=== PATIENT | male | born 1945 | race Caucasian/White ===

== ENCOUNTER → 2023-09-10 15:44 | Outpatient (REF) | payer MEDICARE, SELFPAY | LOC: RAD 15:44 | PROVIDERS: ATTENDING PHYSICIAN Physician Assistant; FAMILY PHYSICIAN Family Medicine | DX: M79.661 Pain in right lower leg (principal) | CPT/HCPCS: 93971 ==

== ENCOUNTER → 2023-10-22 10:18 | Outpatient (REF) | payer MEDICARE, SELFPAY | LOC: HWRAD 10:18 | PROVIDERS: ATTENDING PHYSICIAN Radiology Diagnostic Radiology; FAMILY PHYSICIAN Family Medicine | DX: T85.192D Other mechanical complication of implanted electronic neurostimulator of spinal cord electrode (lead), subsequent encounter (principal) | CPT/HCPCS: 71046; 72070; 72100 ==

== ENCOUNTER → 2024-01-02 10:58 | Outpatient (REF) | payer MEDICARE, SELFPAY | LOC: HWRAD 10:58 | PROVIDERS: ATTENDING PHYSICIAN Family Medicine | DX: Z86.79 Personal history of other diseases of the circulatory system (principal); I89.0 Lymphedema, not elsewhere classified; I83.893 Varicose veins of bilateral lower extremities with other complications | CPT/HCPCS: 93970 ==

== ENCOUNTER → 2024-01-08 13:40 | Outpatient (REF) | payer MEDICARE, SELFPAY | LOC: HWRCS 13:40 | PROVIDERS: ATTENDING PHYSICIAN Family Medicine; OTHER PHYSICIAN Internal Medicine Cardiovascular Disease | DX: I51.7 Cardiomegaly (principal) | CPT/HCPCS: 93306 ==

== ENCOUNTER → 2024-01-14 09:09 | Outpatient (REF) | payer MEDICARE, SELFPAY ==
[2024-01-14 12:32] LABS: Blood Urea Nitrogen 27 mg/dl (9-20); Calcium 9.6 mg/dl (8.4-10.2); Carbon Dioxide 27 mmol/L (22-30); Chloride 104 mmol/L (98-107); Glucose 100 mg/dl (70-99); HDL Cholesterol 45 mg/dl; LDL Cholesterol, Calculated 126 mg/dl; Potassium 3.9 mmol/L (3.5-5.1); Sodium 141 mmol/L (135-145); Total Cholesterol 189 mg/dl (50-199); Triglyceride 90 mg/dl (10-149); Very Low Density Lipoprotein 18 mg/dl (0-30); eGFR > 60.00
[2024-01-14 12:56] LABS: TSH 3.23 uIU/ml (0.47-4.68)
[2024-01-14 14:25] LABS: Glycohemoglobin (HgbA1c) 5.6 % (4.0-5.6)
== END ==
LOC: HWLAB 09:09
PROVIDERS: ATTENDING PHYSICIAN Radiology Diagnostic Radiology; FAMILY PHYSICIAN Family Medicine
DX: R60.0 Localized edema (principal); S81.801D Unspecified open wound, right lower leg, subsequent encounter; I51.7 Cardiomegaly; E78.2 Mixed hyperlipidemia; R73.01 Impaired fasting glucose; T85.192D Other mechanical complication of implanted electronic neurostimulator of spinal cord electrode (lead), subsequent encounter
CPT/HCPCS: 36415; 72070; 72100; 80048; 80061; 83036; 84443

== ENCOUNTER → 2024-01-15 10:38 | Outpatient (REF) | payer MEDICARE, SELFPAY | LOC: PAVMRI 10:38 | PROVIDERS: ATTENDING PHYSICIAN Physical Medicine & Rehabilitation; FAMILY PHYSICIAN Family Medicine | DX: M54.12 Radiculopathy, cervical region (principal) | CPT/HCPCS: 72141 ==

== ENCOUNTER → 2024-02-22 10:38 | Outpatient (REF) | payer MEDICARE, SELFPAY | LOC: HWRAD 10:38 | PROVIDERS: ATTENDING PHYSICIAN Physician Assistant Medical; FAMILY PHYSICIAN Family Medicine | DX: M54.2 Cervicalgia (principal) | CPT/HCPCS: 72050 ==

== ENCOUNTER 2024-07-08 10:38 | Emergency (ER) | payer MEDICARE, SELFPAY ==
[2024-07-08 10:44] VITALS: BP 150/104
[2024-07-08 11:12] LABS: % Basophils 0.8 % (0-2); % Eosinophils 1.1 % (0-6); % Immature Granulocytes 0.5 % (0-0.5); % Lymphocytes 15.4 % (20.5-51.1); % Monocytes 7.2 % (1.7-9.3); Absolute Basophils 0.1 10^3/uL (0-0.2); Absolute Eosinophils 0.1 10^3/uL (0-0.7); Absolute Lymphocytes 0.9 10^3/uL (1.2-3.4); Absolute Monocytes 0.4 10^3/uL (0.1-0.6); Absolute Neutrophils 4.6 10^3/uL (1.4-6.5); Hematocrit 44.9 % (39.0-52.0); Hemoglobin 15.8 g/dL (13.0-18.0); Mean Corp Hgb Conc. 35.2 g/dL (33.0-37.0); Mean Corpuscular Hgb 32.6 pg (27.0-31.0); Mean Corpuscular Volume 92.8 fL (80.0-94.0); Mean Platelet Volume 10.1 fL (7.4-10.4); Nucleated Red Blood Cells % 0 % (-); Platelet Count 225 10^3/uL (130-400); Red Blood Cell Count 4.84 10^6/uL (4.70-6.10); Red Cell Dist. Width 12.5 % (11.5-14.5); White Blood Cell Count 6.1 10^3/uL (4.8-10.8)
[2024-07-08 11:29] LABS: ALT (SGPT) 36 U/L (0-50); AST (SGOT) 41 U/L (17-59); Albumin 4.4 g/dl (3.5-5.0); Alkaline Phosphatase 69 U/L (38-126); Blood Urea Nitrogen 16 mg/dl (9-20); Calcium 9.7 mg/dl (8.4-10.2); Carbon Dioxide 28 mmol/L (22-30); Chloride 102 mmol/L (98-107); Glucose 106 mg/dl (70-99); Potassium 3.9 mmol/L (3.5-5.1); Sodium 138 mmol/L (135-145); Total Bilirubin 0.6 mg/dl (0.2-1.3); Total Protein 6.6 g/dl (6.3-8.2); eGFR > 60.00
[2024-07-08 11:40] LABS: Troponin I 0.013 ng/ml
--- NOTE | 2024-07-08 12:48 | EDRN ---
THis RN assumed care of this pt at this time. Pt moved from to room #25.
[2024-07-08 12:55] VITALS: BP 123/77
[2024-07-08 12:58] VITALS: BMI 29.9
[2024-07-08 13:00] VITALS: BP 122/69
--- NOTE | 2024-07-08 13:17 | ED.GENMED ---
History of Present Illness
General
Chief Complaint: Chest Pain
Source: patient, records and spouse
Exam Limitations: none
Time Seen by Provider: 07/08/24 12:18
Nursing documentation reviewed up to this point in time: agreed with
History of Present Illness
History of Present Illness:
78-year-old male status post ablation followed by Dr. Ruiz, hypertension chronic back pain presents with chest pain with exertion mild shortness of breath with exertion for some time worsened over the past few weeks he has follow-up set up
Joseph in a few weeks, no chest pain at rest only with exertion no fevers or chills did feel nauseous recently after walking, has had stress test and echocardiograms previously never had a cardiac cath no known CAD
Past History
Past History
ED Past Medical History: Arrthythmia and Other (Kidney stone)
ED Past Surgical History: Cardiac
Social History
Tobacco: Non-smoker
Alcohol: Occasional
Drug: None
Personal:
Living: with family
Employment: Employed
Family History
Family History: Hypertension
Review of Systems
Review of Systems
All Other Systems: Not applicable
Constitutional: Denies fever or fatigue
EENT: Reports no symptoms
Respiratory: Reports trouble breathing
Cardiac: Reports chest pain; Denies diaphoresis, palpitations or syncope
ABD/GI: Reports nausea
: Reports no symptoms
Musculoskeletal: Reports no symptoms
Skin: Reports no symptoms
Neurological: Reports dizzy
Endocrine: Reports no symptoms
Phy Exam
Physical Exam
Physical Exam:
Physical Exam
General: no apparent distress, not acutely ill
Neck: No jaundice
Heart: s1/s2 regular rate and rhythm, no murmur. equal radial pulses.
Lungs: no acute respiratory distress. clear bilaterally
Abdomen: Nontender
Neuro: alert and oriented. no focal neurological deficits
Skin: no rash
Psychiatric: well kept. interactive and cooperative
Extremities: no edema. no calf tenderness.
Scores
Heart Score for Chest Pain Patients
STEMI patient?: No
History: Slightly or Non-Suspicious
ECG: Normal
Age: >/= 65 years
Risk Factors: 1 or 2 Risk Factors
Troponin: </= Normal Limit
Heart Score for Chest Pain Patients: 3
Heart Score Risk: 2.5% MACE over next 6 weeks
Course
Orders/Labs/Results
Orders:
Orders
07/08/24 10:39
Electrocardiogram (*1) Urgent
Reason for Study: Chest Pain
EKG- Treatment ONCE
07/08/24 10:53
Complete Blood Count/With Diff Urgent
Comprehensive Metabolic Panel Urgent
Troponin I Urgent
07/08/24 13:21
CR Chest - 2 Views Urgent
Comment:
Reason For Exam: cp
07/08/24 14:48
Echo Follow-up Study Urgent
Reason for Study: chest pain, SOB
07/08/24 15:00
Troponin I Urgent
Abnormal Lab Results
07/08/24
10:53
MCH 32.6 H pg
(27.0-31.0)
Absolute Lymphs (auto) 0.9 L 10^3/uL
(1.2-3.4)
Lymphocytes % 15.4 L %
(20.5-51.1)
Glucose 106 H mg/dl
(70-99)
07/08/24 10:53
07/08/24 10:53
Vital Signs
Initial and Last Documented VS:
Initial Vital Signs
Temp Pulse Resp BP Pulse Ox
97.8 F 95 16 150/104 99
07/08/24 10:44 07/08/24 10:44 07/08/24 10:44 07/08/24 10:44 07/08/24 10:44
Last Documented Vital Signs
Temp Pulse Resp BP Pulse Ox
97.8 F 74 14 130/77 98
07/08/24 10:44 07/08/24 14:45 07/08/24 14:45 07/08/24 14:34 07/08/24 14:45
MDM/Problems Addressed
Differential Diagnosis Includes:
Angina, electrolyte abnormality, anemia, valvular disease deconditioning doubt PE or unstable angina
MDM/Problems Addressed:
Chest pain with exertion
Chronic conditions affecting care: Arrhythmia
Acute Exacerbation and/or Progression of Chronic Illness: Arrhythmia
*Radiology
Radiology exam reviewed: preliminary read by ED provider
*Pulse Oximetry
Patient hypoxic: no
*EKG
Interpreted by ED Provider?: Yes
Interpretation: normal
Comparison EKG: no comparison EKG present
Heart Rate: 70
Rate: normal
Rhythm: sinus
Ischemia: no ischemia
*Bleach Supervisor Interpretation
Rate: normal
Interpretation: normal
Heart Rate: 70
*Critical Care Note
Total Time (30-74mins, 75-104mins- exclusive of procedures): Not Applicable
Update Note
Update Note:
4 PM, update patient was seen by cardiology echocardiogram completed results reviewed troponin repeated results reviewed meds adjusted by cardiology outpatient as cath scheduled for
ED Attending Note
-
Portions of this chart may have been created with voice recognition software.� Occasional wrong word or��sound alike� substitutions may have occurred due to the inherent limitations of voice recognition software.
Discharge Plan
Departure
Patient Disposition: Home (Routine Discharge)
Date of Disposition: 07/08/24
Time of Disposition: 16:10
Patient with high blood pressure during this ER visit?: No
Discharge Problem:
Chest pain
Instructions: Chest Pain DCA Follow Up
Prescriptions:
No Action
tamsulosin 0.4 MG capsule
0.4 mg PO DAILY Qty: 7 0RF
diltiazem HCl 120 MG capsule,extended release 24hr
240 mg PO DAILY
Epidiolex 1 UNIT solution
1 unit PO TIDPRN PRN (Reason: anxiety)
Cbd Oil
1 drp sublingual BIDPRN PRN (Reason: Anxiety/pain)
ublcuolraru-cwujlacak-dgb C-Mn 1 TAB tablet
1 tab PO DAILY
Rx Instructions:
1500 [id number]
coenzyme Q10 [CoQ-10] 100 mg Capsule
100 mg PO DAILY
cholecalciferol (vitamin D3) [Vitamin D3] 125 mcg (5,000 unit) Tablet
250 mcg PO DAILY
Probiotic 1 EACH capsule
1 ea PO DAILY
[place] Orotate 5 MG tablet
5 mg PO DAILY PRN (Reason: add)
Plant Based Protien Powder
15 ml PO DAILY
Rhodiola Rosea Extract
700 mg PO DAILY
Vitamin K
200 mg PO DAILY
Zinc
30 mg PO DAILY
collagen
15 ml PO DAILY
vitamin E
400 units PO DAILY
[place] 3 Fish Oil 1,000 MG capsule
4,000 mg PO DAILY
alpha lipoic acid 500 MG capsule
500 mg PO DAILY
Black Curcumin Seed
1 tsp PO DAILY
Acetyl L-Carnitine
200 mg PO DAILY
tyrosine 500 mg Tablet
500 mg PO DAILY
Kyzatrex 100 mg Capsule
200 mg PO QAM AND QPM
ubiquinol-pyrroloquin quinone 100-10 mg Capsule
1 cap PO DAILY
ascorbic acid (vitamin C) [Vitamin C] 1,000 mg Tablet
1,000 mg PO DAILY
green tea leaf extract Capsule
1 cap PO DAILY
Lion's Jatin
1 tab PO DAILY
Pregnenolone
50 mg PO DAILY
mupirocin 2 % ointment
1 applic intranasal BID Qty: 1 0RF
Patient Comments:
started Sat pm 07/29/23
Silvermed Gel,Extended Release
1 applic TOPICAL DAILY
Patient Comments:
did not start this med yet
Rx Instructions:
Left second toe
aspirin 325 mg Tablet
325 mg PO DAILY Qty: 30 0RF
Rx Instructions:
Take daily x4 weeks for blood clot prevention; then resume Aspirin 81 mg daily.
hydromorphone 2 mg Tablet
2 mg PO Q4H PRN (Reason: moderate-severe pain) Qty: 30 0RF
Rx Instructions:
1 tab for moderate pain, 2 if severe.
Dx total joint.
docusate sodium 100 mg Capsule
100 mg PO BID Qty: 30 0RF
pantoprazole 40 mg Tablet,Delayed Release (Dr/Ec)
40 mg PO DAILY Qty: 30 0RF
Rx Instructions:
Take nightly while on post-op pain meds to reduce GI upset.
sennosides [Senna Lax] 8.6 mg Tablet
17.2 mg PO BID Qty: 30 0RF
ondansetron HCl 4 mg tablet
4 mg PO Q6H PRN (Reason: nausea and vomiting) Qty: 30 0RF
acetaminophen [Tylenol Extra Strength] 500 mg tablet
1,000 mg PO Q6H Qty: 60 0RF
Rx Instructions:
DO NOT exceed >4000 mg daily.
prednisone 10 mg tablet
40 mg PO TAPER Qty: 20 0RF
Rx Instructions:
4 TABS X 2 DAYS, 3 TABS X 2 DAYS, 2 TABS X 2 DAYS, 1 TAB X 2 DAYS, THEN STOP
losartan 50 MG tablet
50 mg PO DAILY Qty: 0 0RF
Rx Instructions:
HOLD IF systolic blood pressure <130 while on Dilaudid.
Referrals:
Acquaviva,Ro, DO [Family Provider] - Next open appointment
Activity Restrictions/Additional Instructions:
Adjust your medications as instructed by cardiology
Follow-up for further testing this week
Interventions
Interventions:
*Risk Screen - Suicide Last Done: 07/08/24 13:02
*General Assessment Last Done: 07/08/24 12:59
*Neglect/Abuse Screening Last Done: 07/08/24 13:03
ED- Fall Risk Assessment Last Done: 07/08/24 13:02
*ED COVID-19 Vaccine History Last Done: 07/08/24 12:59
ED- Cardiac Assessment Last Done: 07/08/24 13:07
Discharge Date and Time
Print Language: SWISS
--- NOTE | 2024-07-08 14:00 | CON.CAR ---
Addendum entered and electronically signed by Freddie Mclean DO 07/08/24 16:41:
I saw and examined the patient.
The Delivery Agent's note was reviewed and I agree with the note.
Comment:
Plan:
PCP: Dr. Knox
Primary garment sewing machine operator: Dr. Ruiz
Impression:
Exertional chest pressure
Dyspnea on exertion
Hypertension
Paroxysmal A-fib status post ablation
Hyperlipidemia
GERD
Previous cardiovascular testing:
-Lexiscan nuclear stress test 07/28/2020: Fixed defect in mid inferior lateral and apical lateral segments consistent with infarction with residual ischemia versus soft tissue attenuation, improved with prone imaging making attenuation more likely.
EF 56%
-Echo 01/08/2024: Small LV, mild LVH, EF 60 to 65%, mild aortic sclerosis without stenosis or regurgitation, normal right heart with PASP 25 to 30 mmHg
-FLP 01/14/2024: LDL 126, HDL 45, TG 90, tchol 189
Plan:
-78-year-old male with PMH atrial fibrillation s/p PVI ablation 08/16/2020, HTN, hyperlipidemia, GERD, chronic lower extremity edema, chronic back pain, [facility] with worsening chest pressure/squeezing and dyspnea on exertion over the
past month, and worse today when walking. He has no rest discomfort and can ride exercise bike without discomfort. Troponin negative x 1. EKG without ischemic EKG changes.
-Exertional nature of symptoms concerning for coronary artery disease. Pt has risk factors including hypertension, hyperlipidemia, borderline elevated glucose, family history of CAD.
We discussed options including admission vs outpt ischemic eval and eval of coronary anatomy. Check second troponin and it was negative.
Bedside urgent echo showed normal function with no wall motion changes.
Cannot walk on treadmill due to chronic back pain
Discussed checking a left heart cath this week to eval coronary anatomy.
If he has recurrent cp, he will come back to ER.
Started ASA 81 mg daily
Start Toprol XL 25 mg dailly. Reduce Cardizem CD to 120 mg daily to allow more room for blood pressure in the setting of Toprol.
-Restart losartan 50 mg daily (has been off for past week, overdue for refill)
Discuss initiation of statin pending cath findings. Patient has declined statin in past.
Discussed with patient's at bedside and emergency room.
Original Note:
Consultation
Consultation Request
Date/Time Consultation Requested: 07/08/2024, 1345
Date/Time Consultation Performed: 12/07/2023, 1400
Requesting Provider: Dr. Gunderson
Performing Provider: LENO Meza for Dr. Mclean
Reason for Consultation: Chest pain
Medical History
-
Chief Complaint: Chest pain
History of Present Illness:
78-year-old male with past medical history atrial fibrillation status post PVI ablation 08/16/2020, hypertension, hyperlipidemia, GERD, chronic lower extremity edema, chronic back pain, presented to ED today with worsening chest pain and dyspnea on
exertion over the past month. He reports developing a squeezing/pressure-like sensation in the center of his chest when he walks about 30 yards, associated with shortness of breath. Pressure can radiate up to his neck. No associated diaphoresis
or nausea. He has to stop walking due to the discomfort. He reports that he can ride an exercise bike without developing the chest discomfort. He has no rest discomfort. He was walking into the pharmacy to get his COVID and flu vaccines today
and felt more short of breath with exertion at a shorter distance so decided to present to the ED for evaluation.
He's had no known recurrent atrial fibrillation since his ablation in 2020. He wears an Apple Watch and has had no notifications for A-fib.
In review of his medications, he is currently taking Cardizem 240 mg daily. He has been off losartan for the past week and is overdue for refill. He was previously on aspirin but is no longer taking it. He takes 2 ibuprofen every night for back
pain relief.
Patient known to Dr. Ruiz and last seen in March 2023 with follow-up scheduled for a few weeks from now.
Had ECHO 01/08/2024: Small ventricle with mild LVH, EF 60 to 65%, mild aortic sclerosis with no stenosis or regurgitation, normal right heart with PASP 25 to 30 mmHg
Lexiscan nuclear stress test 07/28/2020: Fixed defect in mid inferior lateral and apical lateral segments consistent with infarction with residual ischemia versus soft tissue attenuation, improved with prone imaging making attenuation more likely.
EF 56%
ED evaluation:
EKG normal sinus rhythm, no ST abnormality.
Troponin 0.013, second troponin pending
CBC, CMP no significant abnormalities.
Past medical history:
Atrial fibrillation status post PVI 08/2020
Hyperlipidemia
Hypertension
GERD
ADHD
Pulmonary nodule
diaphragmatic hernia
Cataracts
chronic back pain
Past Medical History
Past Medical History: Other
Past Surgical History: Orthopedic (Bilateral knee meniscus repairs, laminectomy and spinal fusion 10/2017, 05/2018, inguinal hernia repair 07/2021, recurrent right inguinal hernia status postrepair 03/2022)
Social History
Tobacco: Former Smoker
Alcohol: Occasional (Rare)
Personal:
Living: With Family
Family History
Family History: Other (Sister with CABG age 60s, cousin with CABG)
Allergies / Home Medications
Allergy/AdvReac Type Severity Reaction Status Date / Time
clams Allergy Syncopy Verified 07/08/24 10:47
oxycodone Allergy 'LOOPY' Verified 07/08/24 10:47
WAS OK
WITH
DILAUDID
PREVIOUSLY
sulfamethoxazole Allergy Rash, Fever Verified 07/08/24 10:47
trimethoprim Allergy Rash, Fever Verified 07/08/24 10:47
�Medication �Instructions �Recorded �Confirmed �Type
tamsulosin 0.4 mg capsule 0.4 mg PO DAILY #7 caps 06/19/17 07/30/23 Rx
diltiazem HCl 120 mg 240 mg PO DAILY Arrhythmia 08/16/20 07/30/23 History
capsule,extended release 24 hr
Cbd Oil 1 drp sublingual BIDPRN PRN 07/18/21 07/30/23 History
Anxiety/pain
Lactobacillus acidophilus 10 1 ea PO DAILY Gastrointestinal 07/18/21 07/30/23 History
billion cell capsule (Probiotic) Issue
[place] Orotate 5 mg PO DAILY PRN add 07/18/21 07/30/23 History
Plant Based Protien Powder 15 ml PO DAILY Supplement 07/18/21 07/30/23 History
Rhodiola Rosea Extract 700 mg PO DAILY Supplement 07/18/21 07/30/23 History
Vitamin K 200 mg PO DAILY Supplement 07/18/21 07/30/23 History
Zinc 30 mg PO DAILY Supplement 07/18/21 07/30/23 History
cannabidiol 100 mg/mL oral 1 unit PO TIDPRN PRN anxiety 07/18/21 07/30/23 History
solution (Epidiolex)
cholecalciferol (vitamin D3) 125 250 mcg PO DAILY Supplement 07/18/21 07/30/23 History
mcg (5,000 unit) tablet (Vitamin
D3)
coenzyme Q10 100 mg capsule 100 mg PO DAILY Supplement 07/18/21 07/30/23 History
(CoQ-10)
collagen 15 ml PO DAILY Supplement 07/18/21 07/30/23 History
uiwnoukuxrb-jdnmiueqh-xoj C-Mn 750 1 tab PO DAILY Supplement 07/18/21 07/30/23 History
mg-600 mg-55 mg-5 mg tablet
vitamin E 400 units PO DAILY Supplement 07/18/21 07/30/23 History
Black Curcumin Seed 1 tsp PO DAILY Supplement 03/17/22 07/30/23 History
[place] 3 Fish Oil 4,000 mg PO DAILY High Cholesterol 03/17/22 07/30/23 History
alpha lipoic acid 500 mg PO DAILY Supplement 03/17/22 07/30/23 History
Acetyl L-Carnitine 200 mg PO DAILY Supplement 06/29/23 07/30/23 History
Lion's Jatin 1 tab PO DAILY Supplement 06/29/23 07/30/23 History
Pregnenolone 50 mg PO DAILY Hormonal Agent 06/29/23 07/30/23 History
ascorbic acid (vitamin C) 1,000 mg 1,000 mg PO DAILY Supplement 06/29/23 07/30/23 History
tablet (Vitamin C)
green tea leaf extract 1 cap PO DAILY Supplement 06/29/23 07/30/23 History
testosterone undecanoate 100 mg 200 mg PO QAM AND QPM Hormonal 06/29/23 07/30/23 History
capsule (Kyzatrex) Agent
tyrosine 500 mg tablet 500 mg PO DAILY Supplement 06/29/23 07/30/23 History
ubiquinol 100 mg-pyrroloquinoline 1 cap PO DAILY Supplement 06/29/23 07/30/23 History
quinone (coenzyme PQQ) 10 mg
capsule
mupirocin 2 % topical ointment 1 applic intranasal BID #1 tube 07/10/23 Rx
silver (Silvermed topical 1 applic topical DAILY Skin Issues 07/23/23 07/23/23 History
gel,extended release)
acetaminophen 500 mg tablet 1,000 mg (2 x 500 mg) PO Q6H #60 07/31/23 Rx
(Tylenol Extra Strength) tabs
aspirin 325 mg tablet 325 mg PO DAILY #30 tabs 07/31/23 Rx
docusate sodium 100 mg capsule 100 mg PO BID #30 caps 07/31/23 Rx
hydromorphone 2 mg tablet 2 mg PO Q4H PRN moderate-severe 07/31/23 Rx
pain #30 tabs
losartan 50 mg tablet 50 mg PO DAILY Blood Pressure #0 07/31/23 07/30/23 Rx
tabs
ondansetron HCl 4 mg tablet 4 mg PO Q6H PRN nausea and 07/31/23 Rx
vomiting #30 tabs
pantoprazole 40 mg tablet,delayed 40 mg PO DAILY #30 tabs 07/31/23 Rx
release
prednisone 10 mg tablet 40 mg (4 x 10 mg) PO TAPER #20 tabs 07/31/23 Rx
sennosides 8.6 mg tablet (Senna 17.2 mg (2 x 8.6 mg) PO BID #30 07/31/23 Rx
Lax) tabs
Review of Systems
-
History Source: Patient
All other systems: Negative unless noted
Physical Exam
Vital Signs
Temp Pulse Resp BP Pulse Ox
97.8 F 73 22 122/69 96
07/08/24 10:44 07/08/24 13:00 07/08/24 13:00 07/08/24 13:00 07/08/24 13:00
Lab Results
07/08/24 10:53
07/08/24 10:53
Troponin I 0.013 ng/ml 07/08/24 10:53
GEN: No distress, awake, Ox3
HEENT: supple, anicteric, mmm
LUNGS: CTA, no wheezes/rales
CV: Reg, S1/S2, soft systolic murmur LSB
ABD: soft, BS+, NT/ND
EXT: trace - 1+ edema B/L LEs, wearing compression stockings
NEURO: Gross non-focal
SKIN: No rash
Impression / Plan
-
PCP: Dr. Knox
Primary garment sewing machine operator: Dr. Ruiz
Impression:
Exertional chest pressure/squeezing
Dyspnea on exertion
Hypertension
Paroxysmal A-fib status post ablation
Hyperlipidemia
GERD
Previous cardiovascular testing:
-Lexiscan nuclear stress test 07/28/2020: Fixed defect in mid inferior lateral and apical lateral segments consistent with infarction with residual ischemia versus soft tissue attenuation, improved with prone imaging making attenuation more likely.
EF 56%
-Echo 01/08/2024: Small LV, mild LVH, EF 60 to 65%, mild aortic sclerosis without stenosis or regurgitation, normal right heart with PASP 25 to 30 mmHg
-FLP 01/14/2024: LDL 126, HDL 45, TG 90, tchol 189
Plan:
-78-year-old male with PMH atrial fibrillation s/p PVI ablation 08/16/2020, HTN, hyperlipidemia, GERD, chronic lower extremity edema, chronic back pain, presented to [facility] today with worsening chest pressure/squeezing and dyspnea on exertion over the
past month, and worse today when walking. He has no rest discomfort and can ride exercise bike without discomfort. Troponin negative x 1. EKG without ischemic EKG changes. Echocardiogram showed normal LV function.
-Exertional nature of symptoms concerning for coronary artery disease. Pt has risk factors including hypertension, hyperlipidemia, borderline elevated glucose, family history of CAD.
-Trending troponin. If second troponin negative and EKG remains without ischemic changes, and patient chest pain-free okay for discharge with outpatient ischemic workup planned.
-Cannot walk on treadmill due to chronic back pain
-Tentatively plan for left heart cath on 07/11/2024
-Start aspirin 81 mg daily
-Start Toprol 25 mg daily
-Will reduce diltiazem to 120 mg daily since we are starting Toprol.
-Restart losartan 50 mg daily (has been off for past week, overdue for refill)
-Discuss initiation of statin after cath. Patient has declined statin in past.
Data Reviewed
-
EKG: Tracing Personally Visualized and interpreted
Labs: Labs Reviewed by me
[2024-07-08 14:34] VITALS: BP 130/77
--- NOTE | 2024-07-08 14:50 | EDRN ---
Addendum entered by Annie Tucker RN 07/08/24 15:01:
Dr. Garcia
Original Note:
Merchandise Team Manager in room w/ pt at this time.
--- NOTE | 2024-07-08 15:02 | EDRN ---
Second troponin drawn and sent. Echocardiogram being done at this time at stretcher side.
[2024-07-08 15:35] LABS: Troponin I < 0.012 ng/ml
[2024-07-08 16:00] VITALS: BP 130/70
== END 2024-07-08 17:04 | disposition home or self-care (01) ==
LOC: EMR 10:38
PROVIDERS: Emergency Medicine; EMERGENCY PHYSICIAN Emergency Medicine; FAMILY PHYSICIAN Family Medicine; OTHER PHYSICIAN Nuclear Medicine Nuclear Cardiology
DX: R07.89 Other chest pain (principal); I10 Essential (primary) hypertension; Z87.891 Personal history of nicotine dependence
CPT/HCPCS: 99285; 93308; 71046; 80053; 84484; 85025; 93005

== ENCOUNTER 2024-07-11 06:13 | Day surgery (SDC) | payer MEDICARE, SELFPAY ==
[2024-07-11] VITALS (22 sets, daily range): BP systolic 99–143; BP diastolic 51–89; BMI 29.7
[2024-07-11] MEDS: LOW STRENGTH ASPIRIN 81 MG PO (07:32)
[2024-07-11 09:02] LABS: ACT-LR - POC 250 Seconds (116-155)
[2024-07-11 09:21] LABS: ACT-LR - POC 290 Seconds (116-155)
[2024-07-11 09:46] LABS: ACT-LR - POC 329 Seconds (116-155)
[2024-07-11 10:16] LABS: ACT-LR - POC 358 Seconds (116-155)
[2024-07-11 10:34] LABS: ACT-LR - POC 276 Seconds (116-155)
--- NOTE | 2024-07-11 10:57 | ITS.CL.CATH ---
[employer] Developer - Catheterization
Cardiac Catheterization
Procedure Report:
LEFT HEART CATHETERIZATION AND CORONARY INTERVENTION
Date of Procedure: July 11, 2024
Referring: Kareem Ruiz
PROCEDURES:
1. Left heart catheterization, coronary angiogram.
2. Ultrasound-guided access.
3. Successful percutaneous coronary artery intervention of a hazy 95% thrombotic proximal RCA stenosis and a moderately tortuous RCA with 2 overlapping 4.0 x 30 mm and 4.0 x 8 mm Medtronic Alfredo frontier drug-eluting stents, postdilated using IVUS
guidance with a 4.5 x 12 mm NC balloon at 18 wil distally and 20 wil proximally with an excellent angiographic and IVUS based result.
3. Intravascular ultrasound (IVUS)
INDICATION: Ongoing exertional dyspnea and chest discomfort
ACCESS: Right radial artery, 6 English sheath, under ultrasound guidance
HEMODYNAMICS : (mmHg)
AO (s/d) : 114/67
LV (s/d) : 117/8
LVEDP : 16
CORONARY FINDINGS
DOMINANCE: Right
LEFT MAIN: The left main artery is a large-caliber vessel which gives rise to the left anterior descending artery and the left circumflex artery. There is mild distal tapering.
LEFT ANTERIOR DESCENDING: The LAD artery is a medium to large caliber vessel which gives rise to 2 major diagonal branches as it courses through the anterior interventricular groove and wraps around the apex. Mid LAD has a long diffuse 70 to 80%
stenosis and is moderately tortuous just distal to the takeoff of D2.
CIRCUMFLEX: The left circumflex artery is a medium caliber vessel which gives rise to 2 major obtuse marginal branches. OM2 has a focal 60 to 70% stenosis in the proximal portion. Otherwise there is mild diffuse atherosclerotic plaque.
RIGHT CORONARY ARTERY: The right coronary artery is a large-caliber, dominant vessel which is moderately tortuous with 2 hairpin turns which gives rise to the right posterior descending artery and the right posterolateral system. There is a hazy
95% thrombotic proximal RCA stenosis. Distal RCA has a focal 50% stenosis. Proximal RCA is thought to be the culprit for presenting exertional symptoms with intervention as noted below.
CORONARY INTERVENTION: Decision was made to move forward with proximal RCA intervention percutaneously given low syntax score and patient's advanced age with other comorbid conditions. Additional heparin was given to maintain a therapeutic ACT
throughout the case. The RCA was selectively engaged using a 6 English JR4 guide and given significant tortuosity, we initially tried to wire across the lesion using a 300 cm extra [place] coronary wire to provide additional support. Given
significant tortuosity, despite multiple passes, the wire going into a branch vessel. We parked this wire into the branch vessel and brought in a twin pass microcatheter over to allow the second port to be parked at the branching point with the
hope to redirect a second coronary wire into the main RCA however despite multiple passes we still continue to feel. Given significant difficulty laying up the lesion well required multiple different angles, which contributed to significant
radiation exposure and contrast dye usage. The best working angles appear to be in a DEB caudal view which then allowed for us to pass a second wire through the twin pass into the distal RCA after significant manipulation. Unfortunately given this
was a short wire, we were not able to safely then take the twin pass out so we decided to rewire with a longer wire alongside the 190 cm BMW that was parked in the distal RCA at this point and thankfully after multiple passes to 300 cm extra [place]
coronary wire tracked the BMW into the distal vessel. At this point we retracted out of the body the BMW and the twin pass and decided to work over the 300 cm extra-support wire which provided support in a significantly tortuous vessel. We
predilated the lesion with a 3.0 x 20 mm semicompliant balloon at 14 wil with good expansion. During balloon expansion patient had significant ST elevations and chest discomfort which resolved soon after balloon deflation. Angiography post
predilating the lesion revealed significant burden of thrombus. We then decided to proceed with stenting. We stented the lesion with a 4.0 x 30 mm Medtronic Alfredo frontier drug-eluting stent which was delivered using a 6 English guide liner support
given significant tortuosity. The stent was postdilated also using GuideLiner support with a 4.5 x 20 mm NC balloon at 18 wil. Given we could not successfully advance this long balloon to the distal edge we decided to bring it out and then brought
in a 4.5 x 12 mm NC balloon and with some manipulation and GuideLiner support we were able to deliver this to the distal edge post dilating it successfully at 18 wil. Proximally we postdilated at 20 wil and noted a significant hazy lesion at the
proximal edge of the stent, possibly a dissection. We covered this with a overlapping 4.0 x 8 mm Medtronic [place] drug-eluting stent and postdilated proximally with a 4.5 x 12 mm NC balloon at 20 wil. Intravascular ultrasound imaging revealed a well
apposed and well-expanded stent with no evidence of proximal or distal stent edge dissections. Patient tolerated the procedure well. He was loaded with 600 mg of Plavix at the end of the case. He had minimal chest discomfort, rated 1 out of 10 at
the end of the case. Given he was hypertensive through most of the case with blood pressures in systolics of 180s to 190s, he was started on a nitroglycerin drip to help manage this.
SEDATION: 120 minutes of procedural sedation was utilized. An independent medical advisor was present to assist with and help manage the patient's level of consciousness and physiologic status.
RADIATION SUMMARY: Fluoro Time (min): 28.7, Dose (mGy): 2231.5, DAP (Gy.cm2) : 133.67
Closure Device: Vascular band over right radial artery, 10 cc of air.
CONCLUSIONS
1. Successful IVUS guided percutaneous coronary artery intervention of a hazy 95% thrombotic proximal RCA stenosis and a moderately tortuous RCA with 2 overlapping 4.0 x 30 mm and 4.0 x 8 mm Medtronic [place] frontier drug-eluting stents, postdilated
using IVUS guidance with a 4.5 x 12 mm NC balloon at 18 wil distally and 20 wil proximally with an excellent angiographic and IVUS based result.
2. Mid LAD has a long diffuse 70 to 80% stenosis and is moderately tortuous just distal to the takeoff of D2.
3. OM2 has a focal 60 to 70% stenosis in the proximal portion.
4. Mildly elevated LVEDP at 16 mmHg.
RECOMMENDATIONS
1. Uninterrupted dual antiplatelet therapy with daily baby aspirin and Plavix 75 mg along with high intensity statin and beta-alfie as tolerated.
2. Wean radial band per protocol.
3. Optimization of cardiovascular risk factors.
4. Discussed staging mid LAD intervention in the near future.
5. Referral for outpatient cardiac rehab
Copy to: Kareem Ruiz.
Malou Nolan MD, FACC, [facility]
--- NOTE | 2024-07-11 11:48 | PTCARENOTE ---
recieved pt w nitro iv infusing at 40 mics/min
[2024-07-11] MEDS: COZAAR 50 MG PO (13:20)
[2024-07-11] MEDS: CARDIZEM CD 120 MG PO (13:21)
[2024-07-11] MEDS: FLOMAX 0.4 MG PO (14:26)
--- NOTE | 2024-07-11 15:48 | CM ---
Reviewed chart. Met with Mr. Youssef to review discharge plans. He states prior to admission he resides with his spouse in a three story home with three steps to enter. He states he has to go up a full flight of steps to get to bedroom/full
bathroom. He states he has a powder room on the first floor. He states prior to admission he uses a walker or single point cane to ambulate depending on how he feels. He has a walker and single point cane at home. He states he has a prescription
plan and uses [facility]. The discharge plan is to return home with his spouse when medically stable.
--- NOTE | 2024-07-11 16:06 | PTCARENOTE ---
Rec'd pt from physical laboratory assistant. R radial site is c/d/i. Tele- SR. No complaints of CP/discomfort at this time. Oriented pt to room. Call mary beth w/in reach.
[2024-07-11] MEDS: LIPITOR 40 MG PO (17:38)
--- NOTE | 2024-07-11 21:32 | PTCARENOTE ---
Pt rec'd at shift change awake,alert c/o discomfort lower back/buttocks area (hx spinal stimulator). Air pillow placed at base of spine, pt jazmín well
sinus on telemetry. Right radial site with DDI. Ecchymosis noted right forearm from previous IV site.
Pt's own teds removed. swelling noted in pedal area right greater than left.
[2024-07-12 04:38] VITALS: BP 128/81
[2024-07-12 05:03] VITALS: BMI 28.5
[2024-07-12 05:08] LABS: Hematocrit 40.2 % (39.0-52.0); Hemoglobin 14.3 g/dL (13.0-18.0); Mean Corp Hgb Conc. 35.6 g/dL (33.0-37.0); Mean Corpuscular Hgb 32.6 pg (27.0-31.0); Mean Corpuscular Volume 91.6 fL (80.0-94.0); Mean Platelet Volume 10.4 fL (7.4-10.4); Platelet Count 224 10^3/uL (130-400); Red Blood Cell Count 4.39 10^6/uL (4.70-6.10); Red Cell Dist. Width 12.5 % (11.5-14.5); White Blood Cell Count 8.4 10^3/uL (4.8-10.8)
--- NOTE | 2024-07-12 05:10 | PTCARENOTE ---
Pt sinus on telemetry. no c/o cp or sob. right radial site with DDI. No active bleeding or hematoma present.
[2024-07-12 05:38] LABS: Blood Urea Nitrogen 16 mg/dl (9-20); Carbon Dioxide 26 mmol/L (22-30); Chloride 103 mmol/L (98-107); Estimated Creatinine Clearance 97 ml/min; Glucose 86 mg/dl (70-99); HDL Cholesterol 53 mg/dl; LDL Cholesterol, Calculated 122 mg/dl; Potassium 3.6 mmol/L (3.5-5.1); Sodium 137 mmol/L (135-145); Total Cholesterol 198 mg/dl (50-199); Triglyceride 119 mg/dl (10-149); Very Low Density Lipoprotein 23 mg/dl (0-30); eGFR > 60.00
[2024-07-12 07:35] VITALS: BP 129/83
--- NOTE | 2024-07-12 07:52 | W.PN.CARDCBS ---
Addendum entered and electronically signed by Margarito Barrett MD 07/12/24 08:39:
I saw and examined the patient.
The SR. PRICING ANALYST or PA's note was reviewed and I agree with the note.
Comment: General: Well developed, well nourished in NAD.
Neck: Supple, no JVD, HJR, carotids +2 B/L, no bruits bilaterally.
Heart: Non displaced PMI, RRR, no murmurs, No S3, S4, no rubs.
Lungs: Clear to auscultation bilaterally, no wheeze, rhonchi, rubs bilaterally,
normal expiratory phase.
Extremities: No clubbing, cyanosis or edema bilaterally.
Neuro: Grossly nonfocal, awake, alert and oriented x3.
Stable cardiology status for discharge
Follow-up arranged
Original Note:
Today's Communication / Plan
-
s/p RCA PCI x2
plan for return for staged LAD PCI
continue asa, plavix, toprol, cardizem cd, cozaar, statin
hgb stable
cardiac rehab
plan for DC to home today
Impression / Plan
-
Primary Adjutant General: Dr. Ruiz
Assessment:
ER visit 07/08/24 for exertional chest pressure, dyspnea on exertion
s/p cath with RCA and LAD disease s/p 2 overlapping RCA stents 07/11/24, plan for staged return for LAD intervention
Hypertension
Paroxysmal A-fib status post ablation
Hyperlipidemia
GERD
ECHO 07/08/2024: EF 60 to 65%, no regional wall motion abnormalities noted, no significant valvular disease
Plan:
-Patient had an ER visit 07/08/2024 for exertional chest pressure and dyspnea on exertion. Returned for cardiac catheterization 07/11/2024 with RCA and LAD disease resulting in 2 overlapping RCA stents, with plan for return in staged fashion for LAD
intervention in next several weeks
-Without chest discomfort or shortness of breath overnight
-In sinus rhythm with 2 several very brief runs of likely atrial tachycardia
-R wrist site with some ecchymoses but no tenderness or altered sensation
-hgb stable at 14.3
-EKG SR with PACs
-continue asa, plavix, toprol, cardizem cd, cozaar, statin
-ambulate and if feeling well, plan for DC to home today
-will give script for SL nitro at DC
-cardiac rehab
-no strenuous activity until after LAD PCI completed
#[id number]
Progress Note - Adjutant General
Subjective
Date of Service: July 12, 2024
no issues overnight
Objective
Labs:
07/12/24 04:54
07/12/24 04:54
Labs
Hgb 14.3 g/dL (13.0-18.0) 07/12/24 04:54
Hct 40.2 % (39.0-52.0) 07/12/24 04:54
Plt Count 224 10^3/uL (130-400) 07/12/24 04:54
Sodium 137 mmol/L (135-145) 07/12/24 04:54
Potassium 3.6 mmol/L (3.5-5.1) 07/12/24 04:54
BUN 16 mg/dl (9-20) 07/12/24 04:54
Creatinine 0.6 mg/dL (0.7-1.3) L 07/12/24 04:54
Glucose 86 mg/dl (70-99) 07/12/24 04:54
Vital Signs and I&O:
Vital Signs
Temp Pulse Resp BP Pulse Ox
98.1 F 81 20 128/81 100
07/12/24 07:37 07/12/24 04:38 07/12/24 07:37 07/12/24 04:38 07/12/24 07:37
Vital Signs
Temp Pulse Resp BP Pulse Ox
98.1 F 81 20 128/81 100
07/12/24 07:37 07/12/24 04:38 07/12/24 07:37 07/12/24 04:38 07/12/24 07:37
Intake & Output
07/09/24 07/10/24 07/11/24 07/12/24
07:59 07:59 07:59 07:59
Intake Total 960 / 960
Output Total 875 / 875
Balance 85 / 85
Physical Exam
Physical Exam
GEN: No distress, awake, alert, oriented x3
HEENT: supple, anicteric, mmm, eomi
LUNGS: CTA B/L, no wheezes/rales
CV: Reg, S1/S2, no murmur
ABD: soft, BS+, NT/ND
EXT: No cyanosis, clubbing, edema
NEURO: Gross non-focal
SKIN: Warm, pink, dry. No rash. R wrist site with some ecchymoses however no tenderness to palpation.
--- NOTE | 2024-07-12 08:04 | W.DS.TRANS ---
DC Summary - [employer] Professional
-
Discharge Instructions:
Sleep Apnea Risk Intermediate
Discharge Diagnosis/Procedures Angioplasty and stent to Right Coronary artery
Diet Low Cholesterol
Activity No strenuous activity
Driving Restrictions No driving for 24 hours
Other Services Cardiac Rehab
Instructions:
Stand-Alone Forms: DC Instructions- Cath/EP Lab
Changes to Home Medications: Yes
Discharge Medications:
DC Medications w/original date entered in [employer]
tamsulosin 0.4 mg capsule 0.4 mg PO DAILY #7 caps 06/19/17
diltiazem HCl 120 mg capsule,extended release 24 hr 120 mg PO DAILY Arrhythmia 08/16/20
Cbd Oil 1 drp sublingual BIDPRN PRN Anxiety/pain 07/18/21
Lactobacillus acidophilus 10 billion cell capsule (Probiotic) 1 ea PO DAILY Gastrointestinal Issue 07/18/21
Plant Based Protien Powder 15 ml PO DAILY Supplement 07/18/21
Rhodiola Rosea Extract 700 mg PO DAILY Supplement 07/18/21
Vitamin K 200 mg PO DAILY Supplement 07/18/21
Zinc 30 mg PO DAILY Supplement 07/18/21
cholecalciferol (vitamin D3) 125 mcg (5,000 unit) tablet (Vitamin D3) 250 mcg PO DAILY Supplement 07/18/21
coenzyme Q10 100 mg capsule (CoQ-10) 100 mg PO DAILY Supplement 07/18/21
collagen 15 ml PO DAILY Supplement 07/18/21
vitamin E 400 units PO DAILY Supplement 07/18/21
Black Curcumin Seed 1 tsp PO DAILY Supplement 03/17/22
[place] 3 Fish Oil 4,000 mg PO DAILY High Cholesterol 03/17/22
alpha lipoic acid 500 mg PO DAILY Supplement 03/17/22
Acetyl L-Carnitine 200 mg PO DAILY Supplement 06/29/23
Lion's Jatin 1 tab PO DAILY Supplement 06/29/23
Pregnenolone 50 mg PO DAILY Hormonal Agent 06/29/23
ascorbic acid (vitamin C) 1,000 mg tablet (Vitamin C) 1,000 mg PO DAILY Supplement 06/29/23
green tea leaf extract 1 cap PO DAILY Supplement 06/29/23
tyrosine 500 mg tablet 500 mg PO DAILY Supplement 06/29/23
ubiquinol 100 mg-pyrroloquinoline quinone (coenzyme PQQ) 10 mg capsule 1 cap PO DAILY Supplement 06/29/23
acetaminophen 500 mg tablet (Tylenol Extra Strength) 1,000 mg (2 x 500 mg) PO Q6H #60 tabs 07/31/23
docusate sodium 100 mg capsule 100 mg PO BID #30 caps 07/31/23
hydromorphone 2 mg tablet 2 mg PO Q4H PRN moderate-severe pain #30 tabs 07/31/23
losartan 50 mg tablet 50 mg PO DAILY Blood Pressure #0 tabs 07/31/23
aspirin 81 mg tablet 81 mg PO DAILY 07/11/24
atorvastatin 40 mg tablet 40 mg PO QPM #90 tabs 07/11/24
clopidogrel 75 mg tablet 75 mg PO DAILY #90 tabs 07/11/24
metoprolol succinate 25 mg tablet,extended release 24 hr (Toprol XL) 25 mg PO DAILY 07/11/24
sennosides 8.6 mg tablet (Senna Lax) 17.2 mg PO DAILY 07/11/24
nitroglycerin 0.4 mg sublingual tablet 0.4 mg sublingual Q5-15M PRN chest pain #25 tabs 07/12/24
Home Medication Changes
lipitor and plavix are new
SL nitro PRN
Pending Results: No
[2024-07-12] MEDS: SENOKOT 17.2 MG PO (08:36)
[2024-07-12] MEDS: PLAVIX 75 MG PO (08:36)
[2024-07-12] MEDS: LOW STRENGTH ASPIRIN 81 MG PO (08:36)
[2024-07-12] MEDS: CARDIZEM CD 120 MG PO (08:36)
[2024-07-12] MEDS: COZAAR 50 MG PO (08:36)
[2024-07-12] MEDS: FLOMAX 0.4 MG PO (08:37)
[2024-07-12] MEDS: TOPROL XL 25 MG PO (08:37)
== END 2024-07-12 11:11 | disposition home or self-care (01) ==
LOC: CATH 06:13
PROVIDERS: Nurse Practitioner; ATTENDING PHYSICIAN Internal Medicine Interventional Cardiology; FAMILY PHYSICIAN Family Medicine; OTHER PHYSICIAN Internal Medicine Cardiovascular Disease
DX: I25.110 Atherosclerotic heart disease of native coronary artery with unstable angina pectoris (principal); Z95.5 Presence of coronary angioplasty implant and graft; I48.0 Paroxysmal atrial fibrillation; I10 Essential (primary) hypertension; E78.5 Hyperlipidemia, unspecified; K21.9 Gastro-esophageal reflux disease without esophagitis; R60.0 Localized edema; G89.29 Other chronic pain; M54.9 Dorsalgia, unspecified; Z82.49 Family history of ischemic heart disease and other diseases of the circulatory system; R73.03 Prediabetes; Z79.02 Long term (current) use of antithrombotics/antiplatelets; Z79.82 Long term (current) use of aspirin; Z79.899 Other long term (current) drug therapy
CPT/HCPCS: 99152; 99153; 92978; 80048; 80061; 85027; 85347; 93005; 93458; C1725; C1753; C1769; C1874; C1894; C9600; Q9967

== ENCOUNTER 2024-08-20 08:27 | Day surgery (SDC) | payer MEDICARE, SELFPAY ==
[2024-08-20] VITALS (18 sets, daily range): BP systolic 130–152; BP diastolic 72–90; BMI 29.2
[2024-08-20] MEDS: NSS 261 ML IV (09:34)
[2024-08-20] MEDS: LOW STRENGTH ASPIRIN 81 MG PO (09:37)
[2024-08-20] MEDS: PLAVIX 75 MG PO (09:37)
[2024-08-20 10:41] LABS: ACT-LR - POC 258 Seconds (116-155)
[2024-08-20 10:50] LABS: ACT-LR - POC 316 Seconds (116-155)
[2024-08-20 11:08] LABS: ACT-LR - POC 302 Seconds (116-155)
[2024-08-20 11:35] LABS: ACT-LR - POC 284 Seconds (116-155)
--- NOTE | 2024-08-20 11:42 | ITS.CL.CATH ---
Director Of Accounting - Catheterization
Cardiac Catheterization
Procedure Report:
LEFT HEART CATHETERIZATION AND CORONARY INTERVENTION
Date of Procedure: August 20, 2024
Referring: Kareem Ruiz
PROCEDURES:
1. Left heart catheterization, coronary angiogram.
2. Ultrasound-guided access.
3. Successful percutaneous coronary artery intervention of a long diffuse 70 to 80% stenosis with one 3.0 x 26 mm Medtronic [place] drug-eluting stent, postdilated using IVUS guidance with a 3.0 x 20 mm NC balloon at 18 wil with an excellent
angiographic and IVUS based result.
4. Successful percutaneous coronary artery intervention of a focal 70 to 75% stenosis in the proximal portion of OM 2 with 2.75 x 12 mm Medtronic [place] drug-eluting stent, postdilated with a 2.75 x 12 mm NC balloon at 16 wil with an excellent
angiographic result.
5. Intravascular ultrasound (IVUS)
INDICATION: Schedule staged PCI to LAD and OM2
ACCESS: Right radial artery, 6 [place] sheath, under ultrasound guidance
Ultrasound was utilized for vascular access. The radial artery was visualized under ultrasound, and the vessel was patent and pulsatile. An image was stored permanently in the patient's medical record. Under direct ultrasound guidance, a 6 [place]
sheath was inserted into the artery using a micropuncture kit through a modified Seldinger technique.
HEMODYNAMICS : (mmHg)
AO (s/d) : 107/64
LV (s/d) : 121/7
LVEDP : 13
CORONARY FINDINGS
DOMINANCE: Right
LEFT MAIN: The left main artery is a large-caliber vessel which gives rise to the left anterior descending artery and the left circumflex artery. There is mild distal tapering.
LEFT ANTERIOR DESCENDING: The LAD artery is a medium to large caliber vessel which gives rise to 2 major diagonal branches as it courses through the anterior interventricular groove and wraps around the apex. Mid LAD has a long diffuse 70 to 80%
stenosis and is moderately tortuous just distal to the takeoff of D2. This was intervened upon as noted below.
CIRCUMFLEX: The left circumflex artery is a medium caliber vessel which gives rise to 2 major obtuse marginal branches. OM2 has a focal eccentric 70-75% stenosis in the proximal portion. Otherwise there is mild diffuse atherosclerotic plaque. OM
2 lesion was intervened upon as noted below.
RIGHT CORONARY ARTERY: The right coronary artery is a large-caliber, dominant vessel which is moderately tortuous with 2 hairpin turns which gives rise to the right posterior descending artery and the right posterolateral system. Recently placed
proximal RCA stent is widely patent. Distal RCA has a focal 40-50% stenosis.
CORONARY INTERVENTION of LAD: The left coronary artery was selectively engaged using a EBU 3.75 guide catheter. Additional heparin was given to maintain a therapeutic ACT throughout the case. A 190 cm 0.014' Run-through coronary wire was
successfully advanced into the diagonal branch at the level of the significant stenosis. A second 190 cm 0.014' Run-through coronary wire was advanced into the distal LAD across the moderately tortuous mid LAD with some difficulty requiring
multiple passes. Over the LAD wire, a 2.75 x 20 mm semi-compliant balloon was utilized and predilated at 14 wil with good expansion. The lesion was subsequently stented with a 3.0 x 26 mm Medtronic [place] drug-eluting stent. The jailed diagonal
wire was retracted into the main body of the LAD and rewired across the stent struts. An IVUS [place] eye catheter was utilized to help guide postdilatation of the deployed stent with a 3.0 x 20 mm NC balloon at 18 wil with an excellent angiographic
and IVUS based result. No evidence of proximal or distal edge dissections with a otherwise well apposed, well expanded stent. Patient tolerated the procedure well with no acute complications.
CORONARY INTERVENTION of OM2: Using the same guide, we now turned our attention to the focal OM 2 lesion. We redirected one of the run-through wires into the distal portion of OM 2 with some manipulation. The lesion was predilated using a 2.5 x 10
mm semi-compliant balloon at 14 wil with good expansion. We subsequently stented the lesion using a 2.75 x 12 mm Medtronic [place] drug-eluting stent and postdilated it with a 2.75 x 12 mm NC balloon at 16 wil with an excellent angiographic result.
Patient continued to tolerate the procedure well with no acute complications. Patient was reloaded with 300 mg of Plavix at the end of the case.
SEDATION: 69 minutes of procedural sedation was utilized. An independent medical director/head team physician was present to assist with and help manage the patient's level of consciousness and physiologic status.
RADIATION SUMMARY: Fluoro Time (min): 16.8, Dose (mGy): 800.34, DAP (Gy.cm2) : 43.39
Closure Device: Vascular band over right radial artery, 10 cc of air.
CONCLUSIONS
1. Successful percutaneous coronary artery intervention of a long diffuse 70 to 80% stenosis with one 3.0 x 26 mm Medtronic [place] drug-eluting stent, postdilated using IVUS guidance with a 3.0 x 20 mm NC balloon at 18 wil with an excellent
angiographic and IVUS based result.
2. Successful percutaneous coronary artery intervention of a focal 70 to 75% stenosis in the proximal portion of OM 2 with 2.75 x 12 mm Medtronic [place] drug-eluting stent, postdilated with a 2.75 x 12 mm NC balloon at 16 wil with an excellent
angiographic result.
3. Recently placed proximal RCA stent is widely patent.
4. High normal LVEDP at 13 mmHg.
RECOMMENDATIONS
1. Wean radial band per protocol.
2. Uninterrupted dual antiplatelet therapy with daily baby aspirin and Plavix 75 mg along with high intensity statin and beta-alfie as tolerated.
3. Aggressive management of cardiovascular risk factors.
4. Referral for outpatient cardiac rehab.
Copy to: Kareem Ruiz
Malou Nolan MD, [facility], [facility]
--- NOTE | 2024-08-20 15:09 | W.PN.UPDATE ---
Update Note
Progress Note Update
78 yo WM s/p PCI LAD and OM2 (same day). He denies cp, sob, jazmín diet, EKG SR, R rad site c/d/i no HT. He will continue DAPT ASA/Plavix. Activity restrictions reviewed. Cardiac rehab c/s. He will f/u [facility] in 2-4 weeks. He is for d/c home after 430p.
CONCLUSIONS
1. Successful percutaneous coronary artery intervention of a long diffuse 70 to 80% stenosis with one 3.0 x 26 mm Medtronic Alfredo drug-eluting stent, postdilated using IVUS guidance with a 3.0 x 20 mm NC balloon at 18 wil with an excellent
angiographic and IVUS based result.
2. Successful percutaneous coronary artery intervention of a focal 70 to 75% stenosis in the proximal portion of OM 2 with 2.75 x 12 mm Medtronic [place]o drug-eluting stent, postdilated with a 2.75 x 12 mm NC balloon at 16 wil with an excellent
angiographic result.
3. Recently placed proximal RCA stent is widely patent.
4. High normal LVEDP at 13 mmHg.
== END 2024-08-20 16:30 | disposition home or self-care (01) ==
LOC: CATH 08:27
PROVIDERS: ATTENDING PHYSICIAN Internal Medicine Interventional Cardiology; FAMILY PHYSICIAN Family Medicine; OTHER PHYSICIAN Internal Medicine Cardiovascular Disease
DX: I25.10 Atherosclerotic heart disease of native coronary artery without angina pectoris (principal); Z95.5 Presence of coronary angioplasty implant and graft; Z79.02 Long term (current) use of antithrombotics/antiplatelets; Z79.82 Long term (current) use of aspirin; K21.9 Gastro-esophageal reflux disease without esophagitis; I48.91 Unspecified atrial fibrillation; I10 Essential (primary) hypertension; E78.5 Hyperlipidemia, unspecified
CPT/HCPCS: 92978; 99152; 99153; 76937; 85347; 93005; 93458; C1725; C1753; C1874; C1894; C9600; Q9967

== ENCOUNTER 2024-09-05 13:35 | Outpatient (RCR) | payer MEDICARE, SELFPAY | END 2024-09-05 23:59 | disposition home or self-care (01) | LOC: CRHB 13:35 | PROVIDERS: ATTENDING PHYSICIAN Internal Medicine Cardiovascular Disease | DX: I25.10 Atherosclerotic heart disease of native coronary artery without angina pectoris (principal); Z95.5 Presence of coronary angioplasty implant and graft | CPT/HCPCS: G0422; G0423 ==

== ENCOUNTER 2024-09-30 16:10 | Observation (INO) | payer MEDICARE, SELFPAY ==
[2024-09-30] VITALS (10 sets, daily range): BP systolic 103–161; BP diastolic 62–92; BMI 28.8; BMI 28.0
[2024-09-30 13:00] LABS: % Basophils 0.3 % (0-2); % Eosinophils 0.1 % (0-6); % Immature Granulocytes 0.2 % (0-0.5); % Lymphocytes 12.2 % (20.5-51.1); % Neutrophils 76.2 % (42.2-75.2); Absolute Lymphocytes 1.2 10^3/uL (1.2-3.4); Absolute Monocytes 1.1 10^3/uL (0.1-0.6); Absolute Neutrophils 7.4 10^3/uL (1.4-6.5); Hematocrit 43.3 % (39.0-52.0); Hemoglobin 15.1 g/dL (13.0-18.0); Mean Corp Hgb Conc. 34.9 g/dL (33.0-37.0); Mean Corpuscular Hgb 32.9 pg (27.0-31.0); Mean Corpuscular Volume 94.3 fL (80.0-94.0); Mean Platelet Volume 10.1 fL (7.4-10.4); Nucleated Red Blood Cells % 0.2 % (-); Platelet Count 203 10^3/uL (130-400); Red Blood Cell Count 4.59 10^6/uL (4.70-6.10); Red Cell Dist. Width 12.9 % (11.5-14.5); White Blood Cell Count 9.7 10^3/uL (4.8-10.8)
[2024-09-30 13:15] LABS: ALT (SGPT) 62 U/L (0-50); AST (SGOT) 51 U/L (17-59); Albumin 3.9 g/dl (3.5-5.0); Alkaline Phosphatase 86 U/L (38-126); Blood Urea Nitrogen 17 mg/dl (9-20); Calcium 9.6 mg/dl (8.4-10.2); Carbon Dioxide 25 mmol/L (22-30); Chloride 105 mmol/L (98-107); Estimated Creatinine Clearance 71 ml/min; Glucose 123 mg/dl (70-99); Potassium 3.4 mmol/L (3.5-5.1); Sodium 138 mmol/L (135-145); Total Bilirubin 1.1 mg/dl (0.2-1.3); Total Protein 6.1 g/dl (6.3-8.2); eGFR > 60.00
[2024-09-30 13:20] LABS: Troponin I 0.013 ng/ml
--- NOTE | 2024-09-30 13:35 | ED.GENMED ---
History of Present Illness
General
Chief Complaint: Chest Pain
Source: patient
Exam Limitations: none
Time Seen by Provider: 09/30/24 13:34
Nursing documentation reviewed up to this point in time: agreed with
History of Present Illness
History of Present Illness:
78-year-old male presents emergency department due to chest pain that began yesterday. It did become worse when he got on an exercise bike. He took a nitro that gave him some relief. Deep breathing makes his chest pain worse. It is worse when he
lays flat.
Past History
Past History
ED Past Medical History: Arrthythmia, CAD and Other (Kidney stone)
ED Past Surgical History: Cardiac (Cardiac stents, OM 2 and long diffuse)
Social History
Tobacco: Non-smoker
Alcohol: Occasional
Drug: None
Personal:
Living: with family
Employment: Employed
Family History
Family History: Hypertension
Review of Systems
Review of Systems
Allergies reviewed?: Yes
All Other Systems: Not applicable
Constitutional: Reports no symptoms
EENT: Reports no symptoms
Respiratory: Reports no symptoms
Cardiac: Reports chest pain
ABD/GI: Reports no symptoms
: Reports no symptoms
Musculoskeletal: Reports no symptoms
Skin: Reports no symptoms
Neurological: Reports no symptoms
Endocrine: Reports no symptoms
Hematologic/Lymphatic: Reports no symptoms
Psychiatric: Reports no symptoms
Phy Exam
Physical Exam
Physical Exam:
Physical Exam
General: no apparent distress, not acutely ill
Neck: supple. no meningeal signs. normal posterior pharynx
Heart: s1/s2 regular rate and rhythm, no murmur. equal radial
pulses.
HEENT: Pupils equal round reactive to light, EOMI
Lungs: no acute respiratory distress. clear bilaterally
Abdomen: normal bowel sounds. not tender. no CVAT
Neuro: alert and oriented. no focal neurological deficits cranial nerves II through XII intact
Skin: no rash
Psychiatric: well kept. interactive and cooperative
Extremities: no edema. no calf tenderness. negative homans. good distal pulses
Scores
Heart Score for Chest Pain Patients
STEMI patient?: No
History: Moderately Suspicious
ECG: Nonspecific Repolarization
Age: >/= 65 years
Risk Factors: >/= 3 Risk Factors or History of CAD
Troponin: </= Normal Limit
Heart Score for Chest Pain Patients: 6
Heart Score Risk: 20.3% MACE over next 6 weeks
Course
Orders/Labs/Results
Orders:
Orders
09/30/24 12:33
Electrocardiogram (*1) Urgent
Reason for Study: Chest Pain
EKG- Treatment ONCE
09/30/24 12:44
ECG [Electrocardiogram (*1)] Urgent
Reason for Study: Chest Pain
Other Reason for Exam: repeat
EKG- Treatment ONCE
09/30/24 12:47
Complete Blood Count/With Diff Urgent
Comprehensive Metabolic Panel Urgent
Magnesium Urgent
Comment: ADD ON
Troponin I Urgent
09/30/24 13:51
Aspirin Chewable [Low Strength Aspirin] 324 mg PO NOW STA
09/30/24 13:52
CR Chest Portable - 1 View Urgent
Comment:
Reason For Exam: chest pain
Reason Study Needs to be Portable: Patient Unstable
09/30/24 15:00
Echo 2D MMode Color/Doppler Routine
Reason for Study: CP, recent stents, concern for pericarditis
09/30/24 15:12
Add On- LAB Urgent
Tests Added?: magnesium
Potassium Chloride [KCl] 40 meq PO NOW STA
09/30/24 15:50
Admit/Transfer Patient As Directed
Co-Sign Provider:
Level of Care: Observation services
Assign to:: Telemetry
Physician / Group: [facility]
Diagnosis: Chest Pain
Reason for Telemetry: Chest Pain syndromes
Date to Stop Telemetry: 10/02/24
Time to Stop Telemetry: 11:00
09/30/24 15:51
PRN Pain Medication Management As Directed
May give lesser potent ordered pain med per pt: Yes
preference::
Protocol:: Medication orders for pain may be administered in a
manner that supports deferring to patient preference
when the pt is:
- Requesting an ordered lesser potent pain medication.
Least to most potent pain medications are defined
as: acetaminophen < NSAID < tramadol < opioids
(morphine, oxycodone, hydromorphone).
- Requesting a lesser dose of the same medication IF
ORDERED.
- Requesting a less intrusive route of administration
if both routes are prescribed by the provider (PO <
IV).
09/30/24 15:53
Code Status As Directed
Resuscitation Status: Full Code
09/30/24 16:53
COVID-19 Antigen Urgent
Source: Nasal Swab
Troponin I Routine
Influenza A+B Rapid Molecular Urgent
JIA Source: Nasal Swab
Specimen Description:
10/02/24 11:00
DC Protocol for Telemetry ONCE
Abnormal Lab Results
09/30/24
12:47
RBC 4.59 L 10^6/uL
(4.70-6.10)
MCV 94.3 H fL
(80.0-94.0)
MCH 32.9 H pg
(27.0-31.0)
Absolute Neuts (auto) 7.4 H 10^3/uL
(1.4-6.5)
Absolute Monos (auto) 1.1 H 10^3/uL
(0.1-0.6)
Neutrophils % 76.2 H %
(42.2-75.2)
Lymphocytes % 12.2 L %
(20.5-51.1)
Monocytes % 11.0 H %
(1.7-9.3)
Potassium 3.4 L mmol/L
(3.5-5.1)
Glucose 123 H mg/dl
(70-99)
ALT 62 H U/L
(0-50)
Total Protein 6.1 L g/dl
(6.3-8.2)
09/30/24 12:47
09/30/24 12:47
Vital Signs
Initial and Last Documented VS:
Initial Vital Signs
Temp Pulse Resp BP Pulse Ox
98.1 F 107 20 109/77 94
09/30/24 12:33 09/30/24 12:33 09/30/24 12:33 09/30/24 12:33 09/30/24 12:33
Last Documented Vital Signs
Temp Pulse Resp BP Pulse Ox
98.1 F 102 29 132/76 98
09/30/24 12:33 09/30/24 19:00 09/30/24 19:00 09/30/24 19:00 09/30/24 19:00
MDM/Problems Addressed
Differential Diagnosis Includes:
WA, pericarditis
MDM/Problems Addressed:
78-year-old male with chest pain, likely pericarditis. Admit to hospitalist. Patient seen by Dr. Mclean in ED.
Chronic conditions affecting care: CAD and Arrhythmia
Acute Exacerbation and/or Progression of Chronic Illness: CAD
*Radiology
Radiology exam reviewed: radiology read reviewed (Chest x-ray no acute findings, echocardiogram no acute findings)
*Pulse Oximetry
Patient hypoxic: no
*EKG
Interpreted by ED Provider?: Yes
EKG Intrepretation Date: 09/30/24
EKG Intrepretation Time: 12:41
Interpretation: abnormal
Comparison EKG: changes noted
Heart Rate: 99
Rate: normal
Rhythm: sinus
Plover: normal axis
Interval: normal interval
QRS Pattern: normal QRS
Ischemia: ST elevation
*Clinical Biochemical Geneticist Interpretation
Rate: normal
Interpretation: normal
Heart Rate: 92
Rhythm: sinus
*Critical Care Note
Total Time (30-74mins, 75-104mins- exclusive of procedures): Not Applicable
Data Reviewed
Review of Other/Old Records Reveals: Operative Reports (Cardiac catheterization shows long diffuse stenosis, with KRISTIN, OM 2 with KRISTIN, performed on 08/20/2024)
Source: records
Patient Management
Social determinants of health affecting care: Living situation
Discussion with other providers: Hospitalist and Sales Operations Assistant (Cardiology Dr. Mclean)
Escalation/DeEscalation of care consider admission/obs:
Admit indicated
ED Attending Note
-
Portions of this chart may have been created with voice recognition software.� Occasional wrong word or��sound alike� substitutions may have occurred due to the inherent limitations of voice recognition software.
Discharge Plan
Departure
Patient Disposition: Admit
Date of Disposition: 09/30/24
Time of Disposition: 15:11
Admit to: IVU
Presentation/result/management discussed w/ accepting MD/DO: Hospitalist
Patient with high blood pressure during this ER visit?: No
Condition: Fair
Discharge Problem:
Pericarditis, Chest pain
Interventions
Interventions:
*Risk Screen - Suicide Last Done: 09/30/24 12:33
*General Assessment Last Done: 09/30/24 12:33
*Neglect/Abuse Screening Last Done: 09/30/24 13:23
*ED COVID-19 Vaccine History Last Done: 09/30/24 13:10
ED- Cardiac Assessment Last Done: 09/30/24 13:18
[2024-09-30] MEDS: LOW STRENGTH ASPIRIN 324 MG PO (14:06)
--- NOTE | 2024-09-30 15:01 | CON.CAR ---
Addendum entered and electronically signed by Freddie Mclean DO 09/30/24 21:28:
I saw and examined the patient.
The Sheeter Operator's note was reviewed and I agree with the note.
Comment:
Plan:
Evidence of pericarditis by history and EKG findings. CP is not like his prior angina.
Echo today, EF preserved no pericardial effusion
Reviewed with IC, will stop Motrin and give Asprin 650 mg TID with recent PCI
Cont colchicine
Monitor EKG and for symptomatic improvement
Trend troponin
Discussed with at bedside.
Original Note:
Consultation
Consultation Request
Date/Time Consultation Performed: 09/30/24
Requesting Provider: Dr. Barlow
Performing Provider: Olesya Strong PA-C for Dr. Mclean
Reason for Consultation: CP
Medical History
-
Chief Complaint: CP
History of Present Illness:
78-year-old male with past medical history atrial fibrillation status post PVI ablation 08/16/2020, hypertension, hyperlipidemia, GERD, chronic lower extremity edema, chronic back pain, presented to ED today with chest pain. He was seen by us
07/08/2024 in ER due to chest pain. He had 2 negative troponins and urgent bedside echo showed normal function. He was felt to be a poor candidate for treadmill stress test due to chronic back pain. He was arranged for return for outpatient
cardiac catheterization 07/11/2024 which showed 95% thrombotic proximal RCA stenosis and he underwent 2 overlapping RCA stents. He was noted at that time to also have a long diffuse 70 to 80% mid LAD stenosis as well as a focal 60 to 70% stenosis in
the proximal OM 2. He then presented for staged intervention of mid LAD and OM 2 on 08/20/2024. He reports since that time he has been compliant with aspirin and Plavix. He reports he completed cardiac rehab, and has been working with physical
therapy without issue. He states on Sunday he did more activity than perhaps he normally would. He denies having any chest discomfort or shortness of breath during doing that activity, however at dinnertime his had noted that he 'looked
tired'. He then reports that evening he developed sharp chest discomfort, which he states is worse with taking a deep breath in or with lying flat. He also reports some worsening with coughing, burping, hiccuping. He states he took 3 sublingual
nitro without any improvement. He reports he was doing better yesterday however then today symptoms were worse again prompting him to come to ER for evaluation. No radiation of pain. No recent viral illnesses to his knowledge.
PMH:
CAD
s/p RCA PCI x2 07/11/24
s/p LAD and OM2 PCI 08/20/24
Atrial fibrillation status post PVI 08/2020
Hyperlipidemia
Hypertension
GERD
ADHD
Pulmonary nodule
diaphragmatic hernia
Cataracts
chronic back pain
Past Medical History
Past Medical History: Other
Past Surgical History: Orthopedic (Bilateral knee meniscus repairs, laminectomy and spinal fusion 10/2017, 05/2018, inguinal hernia repair 07/2021, recurrent right inguinal hernia status postrepair 03/2022)
Social History
Tobacco: Former Smoker
Alcohol: Occasional (Rare)
Personal:
Living: With Family
Employment: Retired
Family History
Family History: Other (Sister with CABG age 60s, cousin with CABG)
Allergies / Home Medications
Allergy/AdvReac Type Severity Reaction Status Date / Time
clams Allergy Severe Syncopy Verified 09/30/24 12:37
oxycodone Allergy Severe 'LOOPY' Verified 09/30/24 12:37
WAS OK
WITH
DILAUDID
PREVIOUSLY
sulfamethoxazole Allergy Severe Rash, Fever Verified 09/30/24 12:37
trimethoprim Allergy Severe Rash, Fever Verified 09/30/24 12:37
�Medication �Instructions �Recorded �Confirmed �Type
tamsulosin 0.4 mg capsule 0.4 mg PO DAILY #7 caps 06/19/17 08/20/24 Rx
diltiazem HCl 120 mg 120 mg PO DAILY Arrhythmia 08/16/20 08/20/24 History
capsule,extended release 24 hr
Cbd Oil 1 drp sublingual BIDPRN PRN 07/18/21 08/20/24 History
Anxiety/pain
Lactobacillus acidophilus 10 1 ea PO DAILY Gastrointestinal 07/18/21 08/20/24 History
billion cell capsule (Probiotic) Issue
Plant Based Protien Powder 15 ml PO DAILY Supplement 07/18/21 08/20/24 History
Rhodiola Rosea Extract 700 mg PO DAILY Supplement 07/18/21 08/20/24 History
Vitamin K 200 mg PO DAILY Supplement 07/18/21 08/20/24 History
Zinc 30 mg PO DAILY Supplement 07/18/21 08/20/24 History
cholecalciferol (vitamin D3) 125 250 mcg PO DAILY Supplement 07/18/21 08/20/24 History
mcg (5,000 unit) tablet (Vitamin
D3)
coenzyme Q10 100 mg capsule 100 mg PO DAILY Supplement 07/18/21 08/20/24 History
(CoQ-10)
collagen 15 ml PO DAILY Supplement 07/18/21 08/20/24 History
vitamin E 400 units PO DAILY Supplement 07/18/21 08/20/24 History
Black Curcumin Seed 1 tsp PO DAILY Supplement 03/17/22 08/20/24 History
[place] 3 Fish Oil 4,000 mg PO DAILY High Cholesterol 03/17/22 08/20/24 History
alpha lipoic acid 500 mg PO DAILY Supplement 03/17/22 08/20/24 History
Acetyl L-Carnitine 200 mg PO DAILY Supplement 06/29/23 08/20/24 History
Lion's Jatin 1 tab PO DAILY Supplement 06/29/23 08/20/24 History
Pregnenolone 50 mg PO DAILY Hormonal Agent 06/29/23 08/20/24 History
ascorbic acid (vitamin C) 1,000 mg 1,000 mg PO DAILY Supplement 06/29/23 08/20/24 History
tablet (Vitamin C)
green tea leaf extract 1 cap PO DAILY Supplement 06/29/23 08/20/24 History
tyrosine 500 mg tablet 500 mg PO DAILY Supplement 06/29/23 08/20/24 History
ubiquinol 100 mg-pyrroloquinoline 1 cap PO DAILY Supplement 06/29/23 08/20/24 History
quinone (coenzyme PQQ) 10 mg
capsule
acetaminophen 500 mg tablet 1,000 mg (2 x 500 mg) PO Q6H #60 07/31/23 08/20/24 Rx
(Tylenol Extra Strength) tabs
docusate sodium 100 mg capsule 100 mg PO BID #30 caps 07/31/23 08/20/24 Rx
hydromorphone 2 mg tablet 2 mg PO Q4H PRN moderate-severe 07/31/23 08/20/24 Rx
pain #30 tabs
losartan 50 mg tablet 50 mg PO DAILY Blood Pressure #0 07/31/23 08/20/24 Rx
tabs
aspirin 81 mg tablet 81 mg PO DAILY 07/11/24 08/20/24 History
atorvastatin 40 mg tablet 40 mg PO QPM #90 tabs 07/11/24 08/20/24 Rx
clopidogrel 75 mg tablet 75 mg PO DAILY #90 tabs 07/11/24 08/20/24 Rx
metoprolol succinate 25 mg 25 mg PO DAILY 07/11/24 08/20/24 History
tablet,extended release 24 hr
(Toprol XL)
sennosides 8.6 mg tablet (Senna 17.2 mg PO DAILY 07/11/24 08/20/24 History
Lax)
nitroglycerin 0.4 mg sublingual 0.4 mg sublingual Q5-15M PRN chest 07/12/24 08/20/24 Rx
tablet pain #25 tabs
Review of Systems
-
History Source: Patient and Family
All other systems: Negative unless noted
Physical Exam
Vital Signs
Temp Pulse Resp BP Pulse Ox
98.1 F 87 23 103/62 95
09/30/24 12:33 09/30/24 14:30 09/30/24 14:30 09/30/24 14:00 09/30/24 14:30
Lab Results
09/30/24 12:47
09/30/24 12:47
Troponin I 0.013 ng/ml 09/30/24 12:47
Physical Exam
General: No Apparent Distress and Comfortable
HEENT: Normocephalic, Anicteric and Moist Mucous Membranes
Respiratory: Clear and Non Labored Respirations
Cardiac: S1/S2 and Regular Rhythm
GI: Soft, Non Tender, Non Distended and Normal Bowel Sounds
Musculoskeletal: No Clubbing, No Cyanosis and Other (trace edema of B/L LE. compression stockings on B/L LE)
Skin: Warm and Dry
Neuro: AO x 3
Impression / Plan
-
Primary Brake Lining Driller: Dr. Ruiz
Assessment:
Presentation with CP
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
CAD
s/p RCA PCI x2 07/11/24
s/p LAD and OM2 PCI 08/20/24
Atrial fibrillation status post PVI 08/2020
Hyperlipidemia
Hypertension
GERD
ADHD
Pulmonary nodule
diaphragmatic hernia
Cataracts
chronic back pain
ECHO 07/08/24: Limited echo, EF 60 to 65%, no regional wall motion abnormalities, normal pericardium without effusion, no pleural effusion present
ECHO 09/30/24: pending
Plan:
-Patient presents with chest discomfort. Symptoms appear most consistent with pericarditis in setting of recent stents
-EKG also with findings suggesting acute pericarditis
-CXR with evidence of atelectasis, but no clear PNA or CHF.
-Trop 0.013. repeat ordered by me
-Check echo, ordered by me. last was a limited study from 07/08/2024
-Continue aspirin, Plavix
-Would place on Motrin 800 mg 3 times daily for 7 days in addition to colchicine 0.6 mg twice daily for 3 months if tolerates. would add PPI
-replete K
-Discussed with patient and at bedside
-Discussed with ER physician via TT
Data Reviewed
-
EKG: Tracing Personally Visualized and interpreted
Radiology: Report Reviewed by me
Medical Tests (Nuc Med, Echo etc): Report Reviewed by me
Labs: Labs Reviewed by me
Old Records: Reviewed
--- NOTE | 2024-09-30 15:21 | HPS.HSE ---
Family Physician
-
Family Physician: Ro Knox
Chief Complaint
-
Chest Pain
History of Present Illness
Patient is an 78 y/o male past medical history of CAD with recent stents, hypertension, hyperlipidemia, atrial fibrillation, spinal stenosis, and BPH who presents with chest pain. Patient reports pain started Sunday evening, noting is kept him up
all night. He took a sublingual nitro without much change in symptoms. He note seemed a little better yesterday but worsened again today prompting him to come to the emergency department. He reports pain is worse when he takes a deep breath, and
worse when lying flat. He repots intermittent chills since Sunday night, but denies any fevers.
Medical History
Past Medical History
Past Medical History: Reports Other
Additional Past Medical History:
Coronary Artery Disease s/p RCA stent 06/2024, LAD and OM2 stent 08/2024
Essential Hypertension
Hyperlipidemia
Paroxysmal Atrial Fibrillation s/p PVI 08/2020
GERD
Fatty Liver Disease
Osteoarthritis
Spinal Stenosis
BPH
Anxiety/Depression
Past Surgical History: Reports Other
Additional Past Surgical History:
L3-L5 Posterior Spinal Fusion
L5-S1 Anterior Interbody Fusion
L1-L2 Partial Laminectomy
Spinal Stimulator
Bilateral Knee Meniscus Repair
Right Inguinal Hernia Repair x 2
Social History
Tobacco: Non-smoker
Alcohol: None
Family History
Family History: Not pertinent
Allergies / Home Medications
Allergies reflects when Allergies were last updated in [employer] [facility].
Home Medications with original date entered in [employer] [facility]
Allergy/Medication List:
Allergies
Allergy/AdvReac Type Severity Reaction Status Date / Time
clams Allergy Syncopy Verified 09/30/24 15:42
oxycodone Allergy 'LOOPY' Verified 09/30/24 15:42
WAS OK
WITH
DILAUDID
PREVIOUSLY
sulfamethoxazole Allergy Rash, Fever Verified 09/30/24 15:42
trimethoprim Allergy Rash, Fever Verified 09/30/24 15:42
Home Medications
tamsulosin 0.4 mg capsule 0.4 mg PO DAILY #7 caps 06/19/17
Cbd Oil 1 drp sublingual BIDPRN PRN Anxiety/pain 07/18/21
cholecalciferol (vitamin D3) 125 mcg (5,000 unit) tablet (Vitamin D3) 250 mcg PO DAILY Supplement 07/18/21
coenzyme Q10 100 mg capsule (CoQ-10) 100 mg PO DAILY Supplement 07/18/21
rhodiola root extract 250 mg capsule 700 mg PO DAILY Supplement ##0 07/18/21
vitamin E 268 mg (400 unit) capsule 268 mg PO DAILY Supplement ##0 07/18/21
vitamin K2 45 mcg capsule 45 mcg PO DAILY Supplement ##0 07/18/21
zinc sulfate 50 mg zinc (220 mg) capsule 50 mg PO DAILY Supplement ##0 07/18/21
Black Curcumin Seed 1 tsp PO DAILY Supplement 03/17/22
alpha lipoic acid 300 mg capsule 300 mg PO DAILY Supplement ##0 03/17/22
omega 7-[id number]-zsq-fish oil 900 mg-1,400 mg capsule,delayed release 1 cap PO DAILY High Cholesterol ##0 03/17/22
Lion's Jatin 1 tab PO DAILY Supplement 06/29/23
Pregnenolone 50 mg PO DAILY Hormonal Agent 06/29/23
acetylcarnitine HCl 250 mg capsule 250 mg PO DAILY Supplement ##0 06/29/23
ascorbic acid (vitamin C) 1,000 mg tablet (Vitamin C) 1,000 mg PO DAILY Supplement 06/29/23
green tea leaf extract 1 cap PO DAILY Supplement 06/29/23
tyrosine 500 mg tablet 500 mg PO DAILY Supplement 06/29/23
ubiquinol 100 mg-pyrroloquinoline quinone (coenzyme PQQ) 10 mg capsule 1 cap PO DAILY Supplement 06/29/23
losartan 50 mg tablet 50 mg PO DAILY Blood Pressure #0 tabs 07/31/23
clopidogrel 75 mg tablet 75 mg PO DAILY #90 tabs 07/11/24
metoprolol succinate 25 mg tablet,extended release 24 hr (Toprol XL) 25 mg PO DAILY 07/11/24
aspirin 81 mg tablet,delayed release 81 mg PO DAILY 09/30/24
atorvastatin 40 mg tablet 40 mg PO DAILY 09/30/24
cyclobenzaprine 5 mg tablet 5 mg PO DAILYPRN PRN spasms 09/30/24
diltiazem HCl 240 mg capsule,extended release 24 hr 240 mg PO DAILY 09/30/24
hydrochlorothiazide 12.5 mg tablet 12.5 mg PO DAILY 09/30/24
nitroglycerin 0.4 mg sublingual tablet 0.4 mg sublingual [id number] PRN chest pain 09/30/24
[id number]-[id number]-citric acid 2 g-30 mg-72 mg/4 g oral powder 4 g PO DAILY 09/30/24
Review of Systems
-
A 12 point ROS was completed and negative except as noted: Yes
Constitutional: Reports Chills; Denies Fever
Physical Exam
Vital Signs
Vital Signs
Temp Pulse Resp BP Pulse Ox
98.1 F 87 23 103/62 95
09/30/24 12:33 09/30/24 14:30 09/30/24 14:30 09/30/24 14:00 09/30/24 14:30
Physical Exam
General: Comfortable and Conversant
HEENT: Anicteric and Moist mucous membranes
Respiratory: Clear and Non Labored Respirations
Cardiac: S1/S2 and Regular Rhythm
GI: Soft and Non Tender
Rectal: Deferred by Provider
Musculoskeletal: No Clubbing, No Cyanosis and Other (Compression stocking bilateral lower extremities)
Skin: Warm and Dry
Neuro: Awake, Alert, Oriented and Nonfocal/grossly intact
Psych: Calm
Laboratory Results
-
09/30/24 12:47
09/30/24 12:47
Laboratory Results
Total Bilirubin 1.1 mg/dl (0.2-1.3) 09/30/24 12:47
AST 51 U/L (17-59) 09/30/24 12:47
ALT 62 U/L (0-50) H 09/30/24 12:47
Alkaline Phosphatase 86 U/L (38-126) 09/30/24 12:47
Troponin I 0.013 ng/ml 09/30/24 12:47
Data Reviewed
-
Lab Data: Labs Reviewed by me
Old Records: Reviewed
Impression/Plan
-
Chest Pain, likely secondary to Pericarditis
-Appreciate Cardiology Consult
-Check Echocardiogram
-Continue Motrin and Colchicine as recommended by Cardiology
Coronary Artery Disease s/p RCA stent 06/2024, LAD and OM2 stents 08/2024
-Continue aspirin and Plavix
Essential Hypertension
-Continue diltiazem, losartan and metoprolol
-Hold HCTZ due to mild hypokalemia
Hyperlipidemia
-Continue atorvastatin
Paroxysmal Atrial Fibrillation s/p PVI 08/2020
-Continue diltiazem and metoprolol
GERD
-Add Protonix while on NSAIDs
BPH
-Continue Flomax
Spinal Stenosis s/p Spinal Stimulator
DVT proph: SCDs
Code Status: Full Code
--- NOTE | 2024-09-30 16:02 | W.PN.UPDATE ---
Update Note
Progress Note Update
This is an addendum to H&P written by paroxysmal atrial fibrillation status post PVI, mild mitral regurgitation, CAD status post RCA stent in June, LAD and OM 2 stent in August, hypertension, hyperlipidemia, osteoarthritis, venous
insufficiency, traumatic pneumothorax 25 years ago, GERD, diverticulosis, nephrolithiasis, fatty liver disease, migraines, essential tremor, spinal stenosis, BPH, skin cancer, anxiety/depression, eczema, obesity, marijuana use, presenting for
pleuritic chest pain that started yesterday with sweats.� Worse when flat.�
Labs unremarkable apart from potassium 3.4.
EKG shows normal sinus rhythm with diffuse ST elevations.� Troponin of 0.013.
Chest x-ray shows subtle interstitial prominence of the lung bases, slightly more linear at the left lung base likely due to hypoinflation/atelectasis.\\
Aspirin given.� Trend troponins.� Check echocardiogram.� Cardiology consulted and recommending ibuprofen and colchicine.
[2024-09-30 16:03] LABS: Magnesium 2.2 mg/dl (1.6-2.3)
[2024-09-30] MEDS: KCL 40 MEQ PO (17:22)
[2024-09-30 17:26] LABS: COVID-19 Antigen Negative (Negative)
[2024-09-30 17:28] LABS: Troponin I 0.017 ng/ml
--- NOTE | 2024-09-30 21:00 | PTCARENOTE ---
Received patient from ED at approx. 2024. Patient ambulated from stretcher to bed. AAA x 3. Denies pain. Oriented to room.
[2024-09-30] MEDS: ASPIRIN 650 MG PO (22:04)
[2024-09-30] MEDS: COLCHICINE 0.6 MG PO (22:04)
[2024-09-30] MEDS: SENOKOT 8.6 MG PO (22:04)
--- NOTE | 2024-10-01 01:53 | PTCARENOTE ---
Observed an unlabeled glass jar on his side table. Patient says it's CBD oil. Spoke to Dr. Mclean to see if it can be ordered for patient while here. Dr. Mclean did not want patient to use it while here and that he may be dc/d soon.
Spoke to nursing real estate sales supervisor about storage of CBD oil. Advised to contact security and have them store it. Security picked up CBD bottle in a clear plastic bag with patient's name sticker attached.
[2024-10-01 03:20] VITALS: BP 99/57
[2024-10-01 05:09] VITALS: BMI 28.0
[2024-10-01] MEDS: PROTONIX 40 MG PO (07:28)
[2024-10-01] MEDS: FLOMAX 0.4 MG PO (07:29)
[2024-10-01] MEDS: ASPIRIN 650 MG PO (07:29)
[2024-10-01] MEDS: LIPITOR 40 MG PO (07:29)
[2024-10-01] MEDS: PLAVIX 75 MG PO (07:29)
[2024-10-01] MEDS: COLCHICINE 0.6 MG PO (07:29)
[2024-10-01] MEDS: COZAAR 50 MG PO (07:30)
[2024-10-01 07:38] VITALS: BP 105/76
[2024-10-01 09:04] LABS: Blood Urea Nitrogen 20 mg/dl (9-20); Carbon Dioxide 27 mmol/L (22-30); Chloride 105 mmol/L (98-107); Estimated Creatinine Clearance 81 ml/min; Glucose 78 mg/dl (70-99); Magnesium 2.4 mg/dl (1.6-2.3); Potassium 3.9 mmol/L (3.5-5.1); Sodium 140 mmol/L (135-145); eGFR > 60.00
[2024-10-01 10:53] VITALS: BP 110/69
--- NOTE | 2024-10-01 13:15 | W.PN.CARDCBS ---
Addendum entered and electronically signed by Lew Colon MD 10/01/24 13:43:
I saw and examined the patient.
The [employer] Programmer Analyst's note was reviewed and I agree with the note.
Comment: Briefly, 78-year-old man with history of multivessel CAD who underwent PCI earlier this year and presents with chest discomfort suggestive of Jabier syndrome. Patient reporting sharp chest and back discomfort which worsens with deep
inspiration and improves with position/sitting forward. ECG with diffuse ST elevations and TN depression. Transthoracic echocardiogram yesterday with normal LV function and no evidence of pericardial effusion.
Patient is resting comfortably in bed today and tells me his symptoms have resolved
Agree with medical management of pericarditis�high-dose aspirin 650 mg x TID x 1 week and colchicine 0.6 mg twice daily x 3 months
Continue Plavix given recent PCI
Stable for discharge from my perspective, outpatient follow-up has been arranged
Original Note:
Today's Communication / Plan
-
continue asa 650mg TID for 1 week then decrease to 81mg daily
continue colchicine 0.6mg BID for 3 months
continue plavix
OP cardiac follow up arranged
Impression / Plan
-
Primary Campaign Advisor: Dr. Ruiz
Assessment:
Presentation with CP
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
CAD
s/p RCA PCI x2 07/11/24
s/p LAD and OM2 PCI 08/20/24
Atrial fibrillation status post PVI 08/2020
Hyperlipidemia
Hypertension
GERD
ADHD
Pulmonary nodule
diaphragmatic hernia
Cataracts
chronic back pain
ECHO 07/08/24: Limited echo, EF 60 to 65%, no regional wall motion abnormalities, normal pericardium without effusion, no pleural effusion present
ECHO 09/30/24: TDS, mild concentric LVH, EF 55 to 60%, no significant valvular disease, normal pericardium without effusion, no significant change compared to prior
Plan:
-Patient presents with chest discomfort. Symptoms appear most consistent with pericarditis in setting of recent stents
-EKG also with findings suggesting acute pericarditis. Ordered repeat EKG today
-No chest pain overnight. He reports he has been ambulatory without difficulty
-Troponins are detectable but within normal range
-Echocardiogram with preserved EF, normal pericardium without effusion
-Transition to aspirin instead of Motrin given recent stents. Continue aspirin 650 mg 3 times daily for 7 days then decrease back to 81 mg daily. Continue colchicine 0.6 mg twice daily for 3 months. Advised patient on side effect of diarrhea and
to call us if persistent.
-Continue Plavix
-Will arrange outpatient cardiac follow-up
-Okay for discharge from cardiac standpoint
-Discussed with hospitalist via [place] text
Progress Note - Campaign Advisor
Subjective
Date of Service: October 01, 2024
feeling well. no CP overnight.
Objective
Labs:
09/30/24 12:47
10/01/24 06:42
Labs
Hgb 15.1 g/dL (13.0-18.0) 09/30/24 12:47
Hct 43.3 % (39.0-52.0) 09/30/24 12:47
Plt Count 203 10^3/uL (130-400) 09/30/24 12:47
Sodium 140 mmol/L (135-145) 10/01/24 06:42
Potassium 3.9 mmol/L (3.5-5.1) 10/01/24 06:42
BUN 20 mg/dl (9-20) 10/01/24 06:42
Creatinine 0.7 mg/dL (0.7-1.3) 10/01/24 06:42
Glucose 78 mg/dl (70-99) 10/01/24 06:42
Troponins
09/30/24 09/30/24
12:47 16:53
Troponin I 0.013 0.017 D
Vital Signs and I&O:
Vital Signs
Temp Pulse Resp BP Pulse Ox
98.1 F 88 18 110/69 99
10/01/24 10:53 10/01/24 10:53 10/01/24 10:53 10/01/24 10:53 10/01/24 10:53
Vital Signs
Temp Pulse Resp BP Pulse Ox
98.1 F 88 18 110/69 99
10/01/24 10:53 10/01/24 10:53 10/01/24 10:53 10/01/24 10:53 10/01/24 10:53
Intake & Output
09/29/24 09/30/24 10/01/24 10/02/24
07:59 07:59 07:59 07:59
Intake Total 120 / 120
Balance 120 / 120
Physical Exam
Physical Exam
GEN: No distress, awake, alert, oriented x3
HEENT: supple, anicteric, mmm, eomi
LUNGS: CTA B/L, no wheezes
CV: Reg, S1/S2, no murmur
ABD: soft, BS+, NT/ND
EXT: No cyanosis, clubbing, edema
NEURO: Gross non-focal
SKIN: Warm, pink, dry. No rash
--- NOTE | 2024-10-01 13:57 | CM ---
Patient seen at bedside with physicians on . Patient stated that he lives with his in a 3 story home with no DME. Patient PCP is Dr. Knox and he uses the [facility] on [facility]. Patient reviewed OBS form with CM and completed
form placed on chart. Patient for discharge later today. Patient stated his will provide discharge planning needs.
Plan; home with no needs anticipated.
[2024-10-01 15:06] VITALS: BP 119/71
--- NOTE | 2024-10-01 15:46 | W.PN.HOSP.TC ---
Addendum entered and electronically signed by Jacqueline Dawson MD 10/01/24 17:39:
I saw and evaluated the patient independently. I reviewed the resident�s note and agree with findings and plan as documented by Dr. Mcdonough.
GENERAL: well developed, well nourished, male in no apparent distress
HEENT: NC/AT
HEART: regular rate and rhythm, +S1, +S2--no rub noted
LUNGS : clear to auscultation bilaterally
ABDOM: soft, nontender, nondistended, + bowel sounds
EXT: no cyanosis, clubbing, or edema
NEUROLOGIC: grossly intact
I saw and evaluated the patient independently. I reviewed the resident�s note and agree with findings and plan as documented by Dr. Mcdonough.
GENERAL: well developed, well nourished, male in no apparent distress
HEENT: NC/AT--frothing at mouth--nonverbal
HEART: regular rate and rhythm, +S1, +S2
LUNGS : clear to auscultation bilaterally
ABDOM: soft, nontender, nondistended, + bowel sounds
EXT: no cyanosis, clubbing, or edema
NEUROLOGIC: nonverbal, rhythmic choreatic movements of bilateral LE (scissor-like position of BL LE)--contracted upper extremities
: condom cath in place
Acute pericarditis--by EKG and sypmtoms--apprec cards--cont asa 650 mg TID x 1 week followed by asa 81mg daily and colchicine 0.6 mg BID x 3 months--troponins not clinically significant--cleared for d/c by cards
History of recent PCI--continue Plavix
Hyperlipidemia--continue atorvastatin
Paroxysmal A-Fib--continue diltiazem and metoprolol (Also on Plavix)
GERD--patient was on Protonix due to NSAID use
BPH--continue flomax
Spinal stenosis s/p spinal stimulator
DVT proph-- SCDs
Code status --Full Code
Original Note:
Today's Communication/Plan
-
Patient was medically cleared for discharge with instructions to follow up with Cardiology in the outpatient setting.
Assessment / Plan
Assessment / Plan
Assessment:
78-year-old male with past medical history of CAD with recent stents, hypertension, hyperlipidemia, atrial fibrillation, spinal stenosis, and BPH presented with recent onset of chest pain. Pain has started on Sunday evening and had kept him up at
night. Symptoms did not change even with use of nitroglycerin. Symptoms was a little better after some time however as they decided to worsen again patient decided to come to the [facility] ED. His pain was worse on inspiration and also while
lying flat. Patient underwent EKG testing in the ED which showed acute pericarditis. Patient was admitted to the hospital and started therapy with Motrin and colchicine. Cardiology was consulted at this time. Patient also underwent chest x-ray
which showed some mild hypoinflation/atelectasis. Patient also underwent updated echocardiogram which did not show any significant changes since last echocardiogram. Therapy was switched to Aspirin and Colchicine and patient's condition improved
remarkably throughout. Patient's condition continued to improve and was medically cleared for discharge.
Chest X-Ray (09/30/2024):
Subtle interstitial prominence at the lung bases. This appears slightly more linear in the left lung base. [place] to be related to hypoinflation/atelectasis. No focal dense consolidation to indicate pneumonia. Stable mild cardiomegaly. No vascular
congestion or evidence to suggest congestive heart failure. No pneumothorax. No other significant change.
EKG (10/01/2024):
NORMAL SINUS RHYTHM
ACUTE PERICARDITIS
ABNORMAL ECG
WHEN COMPARED WITH ECG OF 30-SEP-2024 12:41,
PREMATURE ATRIAL COMPLEXES ARE NO LONGER PRESENT
Echocardiogram (09/30/2024):
Technically difficult study.
Left ventricle is small in size. Mild concentric left ventricular hypertrophy.
Normal regional wall motion. Normal left ventricular systolic function. Left
ventricular ejection fraction is 55-60%.
No significant valvular disease.
Normal pericardium and pleura without evidence of effusion.
Compared to the previous echo Jun 2024, there is no significant change.
Plan:
#Acute pericarditis
-As seen on EKG and through resolution of symptoms with treatment with colchicine and aspirin
-Cardiology consulted, input appreciated
-troponins -> not significantly elevated
-Started on Aspirin 650mg TID and Colchicine 0.6mg BID
-Patient to continue Aspiring 650mg TID for 1 week then switch to aspirin 81mg
-Continue Colchicine 0.6mg BID twice daily for 3 months
-Follow up with cardiology in the outpatient setting
-okay to be discharged as per cardiology
#History of recent PCI
-continue Plavix
#Hyperlipidemia
-continue atorvastatin
#Paroxysmal A-Fib
-continue diltiazem and metoprolol (Also on Plavix)
#GERD
-patient was on Protonix due to NSAID use
#BPH
-continue flomax
#Spinal stenosis s/p spinal stimulator
DVT prophylaxis: SCDs
Full Code
Anticipated Discharge: Today
Subjective/Interval History
-
Date of Service: October 01, 2024
Patient seen earlier this morning. This morning patient states that he has been feeling well, reports no acute concerns or issues. Said the symptoms have all resolved and he wants to go home.
Objective Data
-
Labs:
Laboratory Results
10/01/24
06:42
Sodium 140
Potassium 3.9
Chloride 105
Carbon Dioxide 27
BUN 20
Creatinine 0.7
Glucose 78
Calcium 9.0
Vital Signs:
Vital Signs
Temp Pulse Resp BP Pulse Ox
98.2 F 85 18 119/71 99
10/01/24 15:06 10/01/24 15:06 10/01/24 15:06 10/01/24 15:06 10/01/24 15:06
I&O
09/30/24 10/01/24 10/02/24
06:59 06:59 06:59
Intake Total 120 / 120
Balance 120 / 120
Review of Systems
-
History Source: Patient
Constitutional: Reports No Symptoms
EENT: Reports No Symptoms Reported
Respiratory: Denies Cough or Trouble Breathing
Cardiac: Denies Chest Pain, Diaphoresis, Palpitations or Syncope
Abdomen/GI: Denies Abdominal Pain, Nausea or Vomiting
Musculoskeletal: Reports No Symptoms
Skin: Reports No Symptoms
Neuro: Reports No Symptoms
Physical Exam
-
General: Well Developed, Well Nourished, No Apparent Distress, Comfortable and Conversant
HEENT: Normocephalic and Atraumatic
Respiratory: Clear to Auscultation and Non Labored Respirations
Cardiac: S1/S2 and Irregular Rhythm
GI: Soft, Nontender and Nondistended
Skin: Warm
Neuro: Awake, Alert and Oriented
Psych: Calm
Data Reviewed
-
Diagnostic Radiology: Report Reviewed by me, Discussed with Physician, Discussed with Nurse and Discussed with Patient
Medical Tests (Nuc Med, Echo etc): Report Reviewed by me, Discussed with Physician, Discussed with Nurse and Discussed with Patient
Labs: Labs Reviewed by me, Discussed with Physician, Discussed with Nurse and Discussed with Patient
--- NOTE | 2024-10-01 17:07 | W.DCSUMMARY ---
Addendum entered and electronically signed by Jacqueline Dawson MD 10/01/24 18:10:
Read, reviewed, and agree. See same day progress note for additional details. Time spent coordinating care, DC planning, review of DC plan of care with resident, transition of care, review of records in EMR, med rec, consults, notes, d/w
consultants, nursing, family, and CM = 26 minutes
Original Note:
Discharge Summary
Discharge Data
Date of Admission: 09/30/24
Date of Discharge: 10/01/24
-
Pending Results: No
Hospital Course
Discharging Physician : Dr. Pat Mcdonough, Dr. Jacqueline Dawson
�
Disposition�:��Home
�
Primary�care�physician�: Dr. Ro Knox
�
Principal�Discharge�Diagnosis�:�Chest pain likely secondary to pericarditis
�
Chronic�Discharge�Diagnosis:�
Essential hypertension
Hyperlipidemia
History of coronary artery disease
Paroxysmal A-fib
GERD
BPH spinal stenosis
Hospital�Course�:��
78-year-old male with a past medical history of CAD with recent stents, hypertension, hyperlipidemia, atrial fibrillation, spinal stenosis, and BPH presented with recent onset of chest pain. His pain had started on Sunday evening and had kept him up
at night. He had experience with this sort of chest pain due to his history of CAD and tried using his nitroglycerine to relieve his symptoms to no avail. His symptoms improved a bit at first, but then got progressively worse prompting the patient
to come to the [facility] ED. His pain was worse on inspiration and also while lying flat. Patient underwent EKG testing in the ED which showed acute pericarditis. Patient was admitted to the hospital and started therapy with Motrin and
colchicine. Cardiology was consulted at this time. Patient also underwent chest x-ray which showed some mild hypoinflation/atelectasis. An updated echocardiogram did not show any significant changes since last echocardiogram in June. Therapy
was switched to Aspirin and Colchicine as per cardiology's recommendation and patient's condition improved remarkably throughout. Patient's condition continued to improve and was medically cleared for discharge. Patient will continue aspirin 650mg 3
times daily for 1 week then will change back to 81mg Aspirin daily. Patient to also continue with Colchicine 0.6mg daily for 3 months. Patient will follow up with Cardiology in the outpatient setting for further management. Patient to follow up with
PCP within 1 week for discussions regarding use of supplements and whether he should start them again.
Important�imaging�findings�:
Chest X-Ray (09/30/2024):
Subtle interstitial prominence at the lung bases. This appears slightly more linear in the left lung base. [place] to be related to hypoinflation/atelectasis. No focal dense consolidation to indicate pneumonia. Stable mild cardiomegaly. No vascular
congestion or evidence to suggest congestive heart failure. No pneumothorax. No other significant change.
EKG (10/01/2024):
NORMAL SINUS RHYTHM
ACUTE PERICARDITIS
ABNORMAL ECG
WHEN COMPARED WITH ECG OF 30-SEP-2024 12:41,
PREMATURE ATRIAL COMPLEXES ARE NO LONGER PRESENT��
�
Procedure�findings�:��
Echocardiogram (09/30/2024):
Technically difficult study.
Left ventricle is small in size. Mild concentric left ventricular hypertrophy.
Normal regional wall motion. Normal left ventricular systolic function. Left
ventricular ejection fraction is 55-60%.
No significant valvular disease.
Normal pericardium and pleura without evidence of effusion.
Compared to the previous echo Jun 2024, there is no significant change.
�
Discharge Plan
-
Patient Disposition: Home (Routine Discharge)
Discharge Diagnosis/Procedures: Chest pain likely secondary to pericarditis
Essential hypertension
Hyperlipidemia
History of coronary artery disease
Paroxysmal A-fib
GERD
BPH spinal stenosis
Diet: Low Cholesterol and 2 Gram Sodium
Activity: As tolerated
Driving Restrictions: As prior to admission
Bathing Restrictions: None
Specialty Instructions: Weigh Daily- Call MD for wt gain/loss 3 lbs overnight/5 lbs in 1 week
Referrals:
Ro Knox, DO [Family Provider] - in less than 1 week
Dominga Chaudhari PA-C [Specified Professional Personl] - 10/21/24 12:40 pm (You have a cardiology follow-up appointment at the [place] office with Dr. Ruiz's physician rehabilitation assistant, Dominga. Please call with questions)
Additional Discharge Medication Instructions: Please take aspirin 650mg three times daily for 1 week then decrease back to 81mg daily! Take WITH FOOD!
Take colchicine 0.6mg twice daily for 3 months. May cause diarrhea, call if issues. Stop fiber supplement.
Continue plavix
Follow-up with cardiology as directed, appointment is on 10/21/24 at 12:40 PM
Follow-up with PCP in less than 1 week
Hold supplements until seen by PCP and have discussion about resuming them
Prescriptions:
New
aspirin 325 mg Tablet
650 mg PO TID 7 Days Qty: 42 0RF
colchicine 0.6 mg Tablet
0.6 mg PO BID 30 Days Qty: 60 2RF
Continued
tamsulosin 0.4 MG capsule
0.4 mg PO DAILY Qty: 7 0RF
Cbd Oil
1 drp sublingual BIDPRN PRN (Reason: Anxiety/pain)
cholecalciferol (vitamin D3) [Vitamin D3] 125 mcg (5,000 unit) Tablet
250 mcg PO DAILY
omega 1-slf-eaf-fish oil 900-1,400 mg Capsule,Delayed Release(Dr/Ec)
1 cap PO DAILY Qty: 0
Pregnenolone
50 mg PO DAILY
losartan 50 MG tablet
50 mg PO DAILY Qty: 0 0RF
metoprolol succinate [Toprol XL] 25 mg Tablet Extended Release 24 Hr
25 mg PO DAILY
clopidogrel 75 mg Tablet
75 mg PO DAILY Qty: 90 3RF
diltiazem HCl 240 mg Capsule,Extended Release 24hr
240 mg PO DAILY
cyclobenzaprine 5 mg Tablet
5 mg PO DAILYPRN PRN (Reason: spasms)
atorvastatin 40 mg tablet
40 mg PO DAILY
nitroglycerin 0.4 mg tablet, sublingual
0.4 mg sublingual [id number] PRN (Reason: chest pain)
Held
vitamin E 268 mg (400 unit) Capsule
268 mg PO DAILY Qty: 0
Hold Instructions: Hold until seen by PCP and discussed supplementation
coenzyme Q10 [CoQ-10] 100 mg Capsule
100 mg PO DAILY
Hold Instructions: Hold until seen by PCP and discussed supplementation
zinc sulfate 50 mg zinc (220 mg) Capsule
50 mg PO DAILY Qty: 0
Hold Instructions: Hold until seen by PCP and discussed supplementation
vitamin K2 45 mcg Capsule
45 mcg PO DAILY Qty: 0
Hold Instructions: Hold until seen by PCP and discussed supplementation
rhodiola root extract 250 mg Capsule
700 mg PO DAILY Qty: 0
Hold Instructions: Hold until seen by PCP and discussed supplementation
alpha lipoic acid 300 mg Capsule
300 mg PO DAILY Qty: 0
Hold Instructions: Hold until seen by PCP and discussed supplementation
Black Curcumin Seed
1 tsp PO DAILY
Hold Instructions: Hold until seen by PCP and discussed supplementation
tyrosine 500 mg Tablet
500 mg PO DAILY
Hold Instructions: Hold until seen by PCP and discussed supplementation
acetylcarnitine HCl 250 mg Capsule
250 mg PO DAILY Qty: 0
Hold Instructions: Hold until seen by PCP and discussed supplementation
ubiquinol-pyrroloquin quinone 100-10 mg Capsule
1 cap PO DAILY
Hold Instructions: Hold until seen by PCP and discussed supplementation
ascorbic acid (vitamin C) [Vitamin C] 1,000 mg Tablet
1,000 mg PO DAILY
Hold Instructions: Hold until seen by PCP and discussed supplementation
green tea leaf extract Capsule
1 cap PO DAILY
Hold Instructions: Hold until seen by PCP and discussed supplementation
Lion's Jatin
1 tab PO DAILY
Hold Instructions: Hold until seen by PCP and discussed supplementation
aspirin 81 mg Tablet,Delayed Release (Dr/Ec)
81 mg PO DAILY
Hold Instructions: Resume on 10/08/24. Begin 81 mg daily in 1 week
[id number]-epmabt-citric ac 2-30-72 g-mg-mg/4 g Powder
4 g PO DAILY
Hold Instructions: Hold until seen by PCP and discussed supplementation
hydrochlorothiazide 12.5 mg Tablet
12.5 mg PO DAILY
Hold Instructions: Hold until seen by PCP, due to mild hypokalemia seen in the hospital
Discharge Orders:
Discharge Patient (As Directed); Ordered 10/01/24
Ordered By: Pat Mcdonough
Discharge Date and Time
Discharge Date/Time: 10/01/24 16:19
Print Language: [place] CITIZ[place]
== END 2024-10-01 16:19 | disposition home or self-care (01) ==
LOC: 4 WEST ACU 16:10
PROVIDERS: Emergency Medicine; Physician Assistant; Physician Assistant Medical; ADMITTING PHYSICIAN Hospitalist; ATTENDING PHYSICIAN Internal Medicine; CONSULT PHYSICIAN Nuclear Medicine Nuclear Cardiology; EMERGENCY PHYSICIAN Emergency Medicine; FAMILY PHYSICIAN Family Medicine
DX: I30.9 Acute pericarditis, unspecified (principal); Z95.5 Presence of coronary angioplasty implant and graft; Z79.899 Other long term (current) drug therapy; Z87.891 Personal history of nicotine dependence; Z79.82 Long term (current) use of aspirin; Z79.02 Long term (current) use of antithrombotics/antiplatelets; I11.9 Hypertensive heart disease without heart failure; E78.5 Hyperlipidemia, unspecified; I48.0 Paroxysmal atrial fibrillation; K21.9 Gastro-esophageal reflux disease without esophagitis; N40.0 Benign prostatic hyperplasia without lower urinary tract symptoms; M48.00 Spinal stenosis, site unspecified; E87.6 Hypokalemia; F90.9 Attention-deficit hyperactivity disorder, unspecified type; G89.29 Other chronic pain; K44.9 Diaphragmatic hernia without obstruction or gangrene
CPT/HCPCS: 71045; 80048; 80053; 83735; 84484; 85025; 87502; 87811; 93005; 93306; 99285; G0378

== ENCOUNTER 2024-10-06 14:04 | Outpatient (RCR) | payer MEDICARE, SELFPAY | END 2024-10-06 23:59 | disposition home or self-care (01) | LOC: CRHB 14:04 | PROVIDERS: ATTENDING PHYSICIAN Internal Medicine Cardiovascular Disease | DX: I25.10 Atherosclerotic heart disease of native coronary artery without angina pectoris (principal); Z95.5 Presence of coronary angioplasty implant and graft | CPT/HCPCS: G0422; G0423 ==

== ENCOUNTER 2024-11-05 14:13 | Outpatient (RCR) | payer MEDICARE, SELFPAY | END 2024-11-05 23:59 | disposition home or self-care (01) | LOC: CRHB 14:13 | PROVIDERS: ATTENDING PHYSICIAN Internal Medicine Cardiovascular Disease | DX: I25.10 Atherosclerotic heart disease of native coronary artery without angina pectoris (principal); Z95.5 Presence of coronary angioplasty implant and graft | CPT/HCPCS: G0422; G0423 ==

== ENCOUNTER → 2024-11-25 10:01 | Outpatient (REF) | payer MEDICARE, SELFPAY ==
[2024-11-25 12:07] LABS: ALT (SGPT) 42 U/L (0-50); AST (SGOT) 40 U/L (17-59); Alkaline Phosphatase 88 U/L (38-126); Blood Urea Nitrogen 17 mg/dl (9-20); Calcium 9.3 mg/dl (8.4-10.2); Carbon Dioxide 32 mmol/L (22-30); Chloride 107 mmol/L (98-107); Glucose 101 mg/dl (70-99); HDL Cholesterol 52 mg/dl; LDL Cholesterol, Calculated 54 mg/dl; Potassium 3.8 mmol/L (3.5-5.1); Sodium 142 mmol/L (135-145); Total Bilirubin 0.7 mg/dl (0.2-1.3); Total Cholesterol 119 mg/dl (50-199); Total Protein 6.2 g/dl (6.3-8.2); Triglyceride 68 mg/dl (10-149); Very Low Density Lipoprotein 13 mg/dl (0-30); eGFR > 60.00
== END ==
LOC: HWLAB 10:01
PROVIDERS: ATTENDING PHYSICIAN Physician Assistant Medical; FAMILY PHYSICIAN Family Medicine
DX: R74.8 Abnormal levels of other serum enzymes (principal); E78.2 Mixed hyperlipidemia
CPT/HCPCS: 36415; 80053; 80061

== ENCOUNTER 2024-12-03 16:06 | Outpatient (RCR) | payer MEDICARE, SELFPAY | END 2024-12-03 16:26 | disposition home or self-care (01) | LOC: CRHB 16:06 | PROVIDERS: ATTENDING PHYSICIAN Internal Medicine Cardiovascular Disease | DX: I25.10 Atherosclerotic heart disease of native coronary artery without angina pectoris (principal); Z95.5 Presence of coronary angioplasty implant and graft | CPT/HCPCS: G0422; G0423 ==